=== PATIENT | female | born 1940 | race Caucasian/White ===

== ENCOUNTER 2016-10-13 10:20 | Day surgery (SDC) | payer MEDICARE, BC ==
[~2016-10-13 10:20] MED LIST: Lactated Ringers 1,000 ML IV SCH; Lidocaine 1%/Sod Bicarbonate in NS 8.4% 1 ML Syringe PRN; Midazolam 1 MG/ML 2 ML SDV ONE; Morphine 8 MG, EPINEPHrine 0.3 MG, Ketorolac 30 MG, Sodium Chloride 0.9% 27.9 ML ONE; Morphine PF 10 MG/10 ML SDV ONE; Propofol 200 MG/20 ML SDV ONE; Sodium Chloride 0.9% 10 ML Syringe FLUSH PRN
[2016-10-13] MEDS ORDERED: Bupivacaine 0.25% 30 ML SDV ONE (11:04)
[2016-10-13] MEDS ORDERED: Triamcinolone Acetonide 40 MG/ML 1 ML MDV ONE (11:04)
[2016-10-13] MEDS ORDERED: Vancomycin 1 GM SDV ONE (11:04)
[2016-10-13] MEDS ORDERED: Iodine/Sodium Iodide 2% Tincture 30 ML Bottle ONE (11:04)
--- NOTE | 2016-10-13 11:05 | PCM.PREANE ---
Preanesthetic Assessment - Anesthesia/Transfusion/Family Hx Anesthesia History: Prior Anesthesia Without Reaction Transfusion History: No Prior Transfusion(s) - Physical Assessment Height: 1.52 m Weight: 110.54 kg - Lab Values: Laboratory Last Values MRSA (PCR) Negative 10/01/16 12:14 - Allergies Allergies/Adverse Reactions: Allergies Allergy/AdvReac Type Severity Reaction Status Date / Time Penicillins Allergy Severe Anaphylactic Verified 10/10/16 15:48 Shock estrogens, conjugated Allergy hives/rash Verified 10/10/16 15:48 [From Premarin] PreAnesthesia Questionnaire HEENT History: Reports: Allergic Rhinitis, Cataract, Impaired Vision Other HEENT History: has dentures and glasses Cardiovascular History: Reports: Afib, Heart Failure, High Cholesterol, Hypertension, Pacemaker, Other (See Below) Other Cardiovascular History: new pacemaker battery May 2015 Respiratory History: Reports: Sleep Apnea Other Respiratory History: uses cpap Gastrointestinal History: Reports: GERD Genitourinary History: Reports: Other (See Below) Other Genitourinary History: CKD III 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) Other OB/BYN History: removal of ovarian cyst Musculoskeletal History: Reports: Arthritis, Gout, Osteoarthritis, Other (See Below) Other Musculoskeletal History: restless elg syndrome, muscle weakness Neurological History: Reports: None Psychiatric History: Reports: None Endocrine/Metabolic History: Reports: Diabetes, Type II, Hypothyroidism, Obesity /BMI 30+ Hematologic History: Reports: Anemia Immunologic History: Reports: None Oncologic (Cancer) History: Reports: None - Infectious Disease History Infectious Disease History: Reports: None - Past Surgical History Head Surgeries/Procedures: Reports: None HEENT Surgical History: Reports: Cataract Surgery Cardiovascular Surgical History: Reports: Pacer GI Surgical History: Reports: Appendectomy, Other (See Below) Other GI Surgeries/Procedures: exploratory laparotomy Female Surgical History: Reports: D&C, Hysterectomy Endocrine Surgical History: Reports: None Neurological Surgical History: Reports: Lumbar Spine Other Neurological Surgeries/Procedures: lumbar disc displacement Musculoskeletal Surgical History: Reports: Hip Replacement Other Musculoskeletal Surgeries/Procedures:: arthrocentesis right knee and left knee, rotator cuff repair of shoulder, L total hip replacment Dermatological Surgical History: Reports: None - SUBSTANCE USE Smoking Status *Q: Former Smoker Tobacco Use Within Last Twelve Months: No Recreational Drug Use History: No - HOME MEDS Home Medications: Home Meds Acetaminophen [Tylenol Arthritis Pain] 650 mg PO DAILY PRN 04/13/15 [History] Allopurinol [Zyloprim] 200 mg PO DAILY 04/13/15 [History] Diltiazem HCl [Cardizem Cd] 300 mg PO DAILY 04/13/15 [History] Lisinopril 40 mg PO DAILY 04/13/15 [History] Metoprolol Succinate [Toprol XL] 200 mg PO DAILY 04/13/15 [History] Simvastatin [Zocor] 10 mg PO BEDTIME 04/13/15 [History] Aspirin [Low Dose Aspirin EC] 81 mg PO QPM 04/16/15 [History] Warfarin [Coumadin] 5 mg PO DAILY 04/16/15 [History] Dextrose [Glucose] 4 gm PO ACBREAKFAST PRN #15 tablet 04/25/15 [Rx] Calcium Carbonate [Tums] 500 mg PO DAILY PRN 10/10/16 [History] Cholecalciferol (Vitamin D3) [Vitamin D3] 1,000 unit PO DAILY 10/10/16 [History] Folic Acid 2 mg PO DAILY 10/10/16 [History] Furosemide 40 mg PO BID 10/10/16 [History] Levothyroxine Sodium [Levothyroxine Sodium] 88 mg PO DAILY 10/10/16 [History] Linagliptin [Tradjenta] 5 mg PO BEDTIME 10/10/16 [History] Pramipexole Di-HCl [Mirapex] 0.25 mg PO BEDTIME 10/10/16 [History] glipiZIDE [Glipizide] 5 mg PO BID 10/10/16 [History] - CURRENT (IN HOUSE) MEDS Current Meds: Current Medications Morphine Sulfate 8 mg/Epinephrine HCl 0.3 mg/Cefuroxime Sodium 750 mg/Ketorolac Tromethamine 30 mg/Sodium Chloride 27.9 ml 0 mg .XX ONETIME ONE Stop: 10/13/16 07:10 Lactated Ringer's (Ringers, Lactated) 1,000 mls @ 125 mls/hr IV ASDIRECTED CLAUDIO Stop: 10/13/16 23:00 Clindamycin Phosphate 900 mg/ (Dextrose/Water) 106 mls @ 212 mls/hr IV ONETIME ONE Stop: 10/13/16 13:59 Lidocaine/Sodium Bicarbonate (Buffered Lidocaine 1% In Ns 8.4%) 0.25 ml .XX ONETIME PRN PRN Reason: Prior to IV Start Stop: 10/13/16 18:00 Sodium Chloride (Saline Flush) 10 ml FLUSH ASDIRECTED PRN PRN Reason: Keep Vein Open Stop: 10/13/16 18:00 Discontinued Medications Midazolam HCl (Versed 1 Mg/Ml) Confirm Administered Dose 2 mg .ROUTE .STK-MED ONE Stop: 10/13/16 10:03 Morphine Sulfate (Duramorph Pf) Confirm Administered Dose 10 mg .ROUTE .STK-MED ONE Stop: 10/13/16 10:04 Propofol (Diprivan 20 Ml) Confirm Administered Dose 600 mg .ROUTE .STK-MED ONE Stop: 10/13/16 10:03
[2016-10-13 11:11] VITALS: BP 140/59
--- NOTE | 2016-10-13 11:38 | PCM.PREANE ---
Preanesthetic Assessment - Anesthesia/Transfusion/Family Hx Anesthesia History: Prior Anesthesia Without Reaction Family History of Anesthesia Reaction: No Transfusion History: No Prior Transfusion(s) Type of Transfusion Reactions: Reports: Unknown - Review of Systems General: No Symptoms Pulmonary: Shortness of Breath (JET, wears CPAP) Cardiovascular: Other (pacemaker in place, on coumadin, off 1 week, CHF, lasix daily) Gastrointestinal: Other (occasional heartburn) Neurological: No Symptoms Other: Reports: Diabetes, Thyroid Problems - Physical Assessment NPO Status Date: 10/12/16 NPO Status Time: 19:00 Pulse: 79 O2 Sat by Pulse Oximetry: 95 Respiratory Rate: 17 Blood Pressure: 140/59 Temperature: 37.4 C Vital Signs: Last Vital Signs Temp 37.4 C 10/13/16 10:30 Pulse 79 10/13/16 10:30 Resp 17 10/13/16 10:30 BP 140/59 L 10/13/16 10:30 Pulse Ox 95 10/13/16 10:30 Height: 1.52 m Weight: 110.54 kg ASA Class: 3 Airway Class: Mallampati = 2 Dentition: Reports: Dentures, Edentulous Thyro-Mental Finger Breadths: 3 Mouth Opening Finger Breadths: 3 ROM/Head Extension: Full Lungs: Clear to Auscultation, Normal Respiratory Effort Cardiovascular: Regular Rate, Regular Rhythm - Lab Values: Laboratory Last Values MRSA (PCR) Negative 10/01/16 12:14 - Allergies Allergies/Adverse Reactions: Allergies Allergy/AdvReac Type Severity Reaction Status Date / Time Penicillins Allergy Severe Anaphylactic Verified 10/13/16 11:16 Shock estrogens, conjugated Allergy hives/rash Verified 10/13/16 11:16 [From Premarin] - Blood Blood Available: No Product(s) Available: None - Anesthesia Plan Pre-Op Medication Ordered: None Beta Hortencia: Metoprolol Med Last Dose Date: 10/12/16 Med Last Dose Time: 19:00 - Acknowledgements Anesthesia Type Planned: Spinal Pt an Appropriate Candidate for the Planned Anesthesia: Yes Alternatives and Risks of Anesthesia Discussed w Pt/Guardian: Yes Pt/Guardian Understands and Agrees with Anesthesia Plan: Yes PreAnesthesia Questionnaire HEENT History: Reports: Allergic Rhinitis, Cataract, Impaired Vision Other HEENT History: has dentures and glasses Cardiovascular History: Reports: Afib, Heart Failure, High Cholesterol, Hypertension, Pacemaker, Other (See Below) Other Cardiovascular History: new pacemaker battery May 2015 Respiratory History: Reports: Sleep Apnea Other Respiratory History: uses cpap Gastrointestinal History: Reports: GERD Genitourinary History: Reports: Other (See Below) Other Genitourinary History: CKD 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) Other OB/BYN History: removal of ovarian cyst Musculoskeletal History: Reports: Arthritis, Gout, Osteoarthritis, Other (See Below) Other Musculoskeletal History: restless elg syndrome, muscle weakness Neurological History: Reports: None Psychiatric History: Reports: None Endocrine/Metabolic History: Reports: Diabetes, Type II, Hypothyroidism, Obesity /BMI 30+ Hematologic History: Reports: Anemia Immunologic History: Reports: None Oncologic (Cancer) History: Reports: None - Infectious Disease History Infectious Disease History: Reports: None - Past Surgical History Head Surgeries/Procedures: Reports: None HEENT Surgical History: Reports: Cataract Surgery Cardiovascular Surgical History: Reports: Pacer GI Surgical History: Reports: Appendectomy, Other (See Below) Other GI Surgeries/Procedures: exploratory laparotomy Female Surgical History: Reports: D&C, Hysterectomy Endocrine Surgical History: Reports: None Neurological Surgical History: Reports: Lumbar Spine Other Neurological Surgeries/Procedures: lumbar disc displacement Musculoskeletal Surgical History: Reports: Hip Replacement Other Musculoskeletal Surgeries/Procedures:: arthrocentesis right knee and left knee, rotator cuff repair of shoulder, L total hip replacment Dermatological Surgical History: Reports: None - SUBSTANCE USE Smoking Status *Q: Former Smoker Tobacco Use Within Last Twelve Months: No Recreational Drug Use History: No - HOME MEDS Home Medications: Home Meds Acetaminophen [Tylenol Arthritis Pain] 650 mg PO DAILY PRN 04/13/15 [History] Allopurinol [Zyloprim] 200 mg PO DAILY 04/13/15 [History] Diltiazem HCl [Cardizem Cd] 300 mg PO DAILY 04/13/15 [History] Lisinopril 40 mg PO DAILY 04/13/15 [History] Metoprolol Succinate [Toprol XL] 200 mg PO DAILY 04/13/15 [History] Simvastatin [Zocor] 10 mg PO BEDTIME 04/13/15 [History] Aspirin [Low Dose Aspirin EC] 81 mg PO QPM 04/16/15 [History] Warfarin [Coumadin] 5 mg PO DAILY 04/16/15 [History] Dextrose [Glucose] 4 gm PO ACBREAKFAST PRN #15 tablet 04/25/15 [Rx] Calcium Carbonate [Tums] 500 mg PO DAILY PRN 10/10/16 [History] Cholecalciferol (Vitamin D3) [Vitamin D3] 1,000 unit PO DAILY 10/10/16 [History] Folic Acid 2 mg PO DAILY 10/10/16 [History] Furosemide 40 mg PO BID 10/10/16 [History] Levothyroxine Sodium [Levothyroxine Sodium] 88 mg PO DAILY 10/10/16 [History] Linagliptin [Tradjenta] 5 mg PO BEDTIME 10/10/16 [History] Pramipexole Di-HCl [Mirapex] 0.25 mg PO BEDTIME 10/10/16 [History] glipiZIDE [Glipizide] 5 mg PO BID 10/10/16 [History] - CURRENT (IN HOUSE) MEDS Current Meds: Current Medications Lactated Ringer's (Ringers, Lactated) 1,000 mls @ 125 mls/hr IV ASDIRECTED CLAUDIO Stop: 10/13/16 23:00 Last Admin: 10/13/16 10:59 Dose: 125 mls/hr Clindamycin Phosphate 900 mg/ (Dextrose/Water) 106 mls @ 212 mls/hr IV ONETIME ONE Stop: 10/13/16 12:14 Last Admin: 10/13/16 10:59 Dose: 212 mls/hr Lidocaine/Sodium Bicarbonate (Buffered Lidocaine 1% In Ns 8.4%) 0.25 ml .XX ONETIME PRN PRN Reason: Prior to IV Start Stop: 10/13/16 18:00 Last Admin: 10/13/16 10:59 Dose: 0.25 ml Sodium Chloride (Saline Flush) 10 ml FLUSH ASDIRECTED PRN PRN Reason: Keep Vein Open Stop: 10/13/16 18:00 Discontinued Medications Bupivacaine HCl (Marcaine 0.25%) Confirm Administered Dose 60 ml .ROUTE .STK- MED ONE Stop: 10/13/16 11:05 Morphine Sulfate 8 mg/Epinephrine HCl 0.3 mg/Ketorolac Tromethamine 30 mg/ Sodium Chloride 27.9 ml 0 mg .XX ONETIME ONE Stop: 10/13/16 07:10 Iodine (Iodine 2% Mild Tincture) Confirm Administered Dose 30 ml .ROUTE .STK- MED ONE Stop: 10/13/16 11:05 Midazolam HCl (Versed 1 Mg/Ml) Confirm Administered Dose 2 mg .ROUTE .STK-MED ONE Stop: 10/13/16 10:03 Morphine Sulfate (Duramorph Pf) Confirm Administered Dose 10 mg .ROUTE .STK-MED ONE Stop: 10/13/16 10:04 Propofol (Diprivan 20 Ml) Confirm Administered Dose 600 mg .ROUTE .STK-MED ONE Stop: 10/13/16 10:03 Tranexamic Acid (Cyklokapron) Confirm Administered Dose 1,000 mg .ROUTE .STK- MED ONE Stop: 10/13/16 11:05 Triamcinolone Acetonide (Kenalog-40) Confirm Administered Dose 80 mg .ROUTE .STK -MED ONE Stop: 10/13/16 11:05 Vancomycin HCl (Vancomycin) Confirm Administered Dose 1 gm .ROUTE .STK-MED ONE Stop: 10/13/16 11:05
[2016-10-13] MEDS ORDERED: Clindamycin Phosphate 900 MG in Dextrose 5% in Water 100 ML IV ONE ×2 (11:45)
[2016-10-13] MEDS ORDERED: Ondansetron 4 MG/2 ML SDV IVPUSH PRN (12:18)
[2016-10-13] MEDS ORDERED: Acetaminophen/oxyCODONE 325-5 MG Tab PO PRN (12:18)
[2016-10-13] MEDS ORDERED: Glucose Gel 15 GM in 37.5 GM Tube PO PRN (12:33)
[2016-10-13] MEDS ORDERED: Calcium Carbonate 500 MG Tab.Chew PO PRN (12:33)
[2016-10-13] MEDS ORDERED: Bisacodyl 5 MG Tab PO PRN (14:00)
[2016-10-13] MEDS ORDERED: Magnesium Hydroxide 400 MG/5 ML Susp 30 ML Cup PO PRN (14:00)
[2016-10-13] MEDS ORDERED: Sennosides 8.6 MG Tab PO PRN (14:00)
[2016-10-13] MEDS ORDERED: Naloxone 0.4 MG/ML SDV IVPUSH PRN (14:00)
[2016-10-13] MEDS ORDERED: Morphine 2 MG/ML Syringe IVPUSH PRN (14:00)
[2016-10-13] MEDS ORDERED: Cyclobenzaprine 10 MG Tab PO PRN (14:00)
[2016-10-13] MEDS ORDERED: Clindamycin Phosphate 900 MG in Sodium Chloride 0.9% 100 ML IV SCH (17:45)
[2016-10-13] MEDS ORDERED: Aspirin 81 MG Tab.EC PO SCH (18:00)
[2016-10-13] MEDS ORDERED: Simvastatin 10 MG Tab PO SCH (21:00)
[2016-10-13] MEDS ORDERED: glipiZIDE 5 MG Tab PO SCH (21:00)
[2016-10-13] MEDS ORDERED: Famotidine 20 MG Tab PO SCH (21:00)
[2016-10-13] MEDS ORDERED: Furosemide 20 MG Tab PO SCH (21:00)
[2016-10-13] MEDS ORDERED: Pramipexole 0.25 MG Tab PO SCH (21:00)
[2016-10-13] MEDS ORDERED: Docusate Sodium 100 MG Cap PO SCH (21:00)
[2016-10-14] MEDS ORDERED: Multivitamins,Therapeutic Tab PO SCH (07:00)
[2016-10-14] MEDS ORDERED: Cholecalciferol (Vitamin D3) 1,000 Unit Tab PO SCH (09:00)
[2016-10-14] MEDS ORDERED: Diltiazem 300 MG Cap.CD PO SCH (09:00)
[2016-10-14] MEDS ORDERED: Allopurinol 100 MG Tab PO SCH (09:00)
[2016-10-14] MEDS ORDERED: Metoprolol Succinate 50 MG Tab.ER PO SCH (09:00)
[2016-10-14] MEDS ORDERED: Folic Acid 1 MG Tab PO SCH (09:00)
[2016-10-14] MEDS ORDERED: Levothyroxine 88 MCG Tab PO SCH (09:00)
[2016-10-14] MEDS ORDERED: Lisinopril 20 MG Tab PO SCH (09:00)
--- NOTE | 2016-10-18 17:16 | PCM.SN ---
- Free Text/Narrative Note: Consult was not performed, this surgical case was cancelled.
== END 2016-10-13 13:01 | disposition home or self-care (01) ==
LOC: JD.SDS 10:20 → UNDOADMIN 10:20 → JD.MS 10:20 → UNDODISIN 13:01 → JD.SDS 13:01 → EDSTATUS 16:00
PROVIDERS: ATTEND Orthopaedic Surgery
DX: M17.11 Unilateral primary osteoarthritis, right knee (principal); Z53.8 Procedure and treatment not carried out for other reasons; R06.02 Shortness of breath; Z79.01 Long term (current) use of anticoagulants
CPT/HCPCS: 36415; 80048; 85025; 85610; 85730; 87641; J3301; J7060; J7120; A9270-GY; J2250; J2270; J2704; J3370; J3490

== ENCOUNTER 2016-11-17 08:22 | Inpatient (IN) | payer MEDICARE, BC ==
[~2016-11-17 08:22] MED LIST changes: -Midazolam 1 MG/ML 2 ML SDV ONE; -Morphine 8 MG, EPINEPHrine 0.3 MG, Ketorolac 30 MG, Sodium Chloride 0.9% 27.9 ML ONE; -Morphine PF 10 MG/10 ML SDV ONE; -Propofol 200 MG/20 ML SDV ONE
[2016-11-17] MEDS ORDERED: fentaNYL 100 MCG/2 ML SDV ONE (08:26)
[2016-11-17] MEDS ORDERED: Propofol 200 MG/20 ML SDV ONE ×2 (08:26→12:02)
[2016-11-17] MEDS ORDERED: ceFAZolin 1 GM Vial ONE (08:26)
[2016-11-17] MEDS ORDERED: Lidocaine 1% 4 ML ONE (08:26)
[2016-11-17] MEDS ORDERED: Bisacodyl 5 MG Tab PO PRN (09:04)
[2016-11-17] MEDS ORDERED: Morphine 2 MG/ML Syringe IVPUSH PRN (09:04)
[2016-11-17] MEDS ORDERED: Ondansetron 4 MG/2 ML SDV IVPUSH PRN ×2 (09:04→12:00)
[2016-11-17] MEDS ORDERED: Sennosides 8.6 MG Tab PO PRN (09:04)
[2016-11-17] MEDS ORDERED: Magnesium Hydroxide 400 MG/5 ML Susp 30 ML Cup PO PRN (09:04)
[2016-11-17] MEDS ORDERED: Naloxone 0.4 MG/ML SDV IVPUSH PRN (09:04)
[2016-11-17] MEDS ORDERED: Midazolam 1 MG/ML 2 ML SDV ONE (10:02)
[2016-11-17] MEDS ORDERED: Phenylephrine 1% 10 MG/ML SDV ONE (10:06)
[2016-11-17] MEDS ORDERED: ePHEDrine 50 MG/ML SDV ONE (10:06)
[2016-11-17] MEDS ORDERED: Morphine PF 10 MG/10 ML SDV ONE (10:57)
[2016-11-17] MEDS ORDERED: Clindamycin Phosphate 900 MG/6 ML AdvVial ONE (11:07)
[2016-11-17] MEDS: Clindamycin Phosphate 900 MG/6 ML AdvVial ONE ×2 (11:33→12:07)
[2016-11-17] MEDS: Iodine/Sodium Iodide 2% Tincture 30 ML Bottle ONE ×2 (11:33→12:03)
[2016-11-17] MEDS: Vancomycin 1 GM SDV ONE ×2 (11:34→12:17)
[2016-11-17] MEDS: Bupivacaine 0.25% 30 ML SDV ONE ×2 (11:34→12:14)
[2016-11-17] MEDS: Morphine 8 MG, EPINEPHrine 0.3 MG, Ketorolac 30 MG, Sodium Chloride 0.9% 27.9 ML ONE ×12 (11:34→20:23)
[2016-11-17] MEDS: Bupivacaine 0.25% 10 ML SDV INJECT ONE ×3 (11:35→20:24)
[2016-11-17] MEDS: Triamcinolone Acetonide 40 MG/ML 1 ML MDV ONE ×2 (11:36→12:48)
--- NOTE | 2016-11-17 11:37 | PCM.PREANE ---
Preanesthetic Assessment - Anesthesia/Transfusion/Family Hx Anesthesia History: Prior Anesthesia Without Reaction Family History of Anesthesia Reaction: No Transfusion History: No Prior Transfusion(s) Type of Transfusion Reactions: Reports: Unknown Intubation History: History of Difficulty Intubation (Previous note: Grade IV view, Thomas II, bouge used to secure airway. ) - Review of Systems General: No Symptoms Pulmonary: No Symptoms Cardiovascular: No Symptoms Gastrointestinal: No Symptoms Neurological: No Symptoms Other: Reports: Diabetes - Physical Assessment NPO Status Date: 11/16/16 NPO Status Time: 19:30 O2 Sat by Pulse Oximetry: 99 Respiratory Rate: 16 Vital Signs: Last Vital Signs Temp 36.6 C 11/17/16 09:00 Pulse 71 11/17/16 09:00 Resp 16 11/17/16 09:00 BP 138/63 11/17/16 09:00 Pulse Ox 99 11/17/16 09:00 Height: 1.55 m Weight: 112.491 kg ASA Class: 3 Mental Status: Alert & Oriented x3 Airway Class: Mallampati = 2 Dentition: Reports: Dentures (Upper and lower dentures, two teeth secure in mouth. ) Thyro-Mental Finger Breadths: 3 Mouth Opening Finger Breadths: 3 ROM/Head Extension: Full Lungs: Clear to Auscultation, Normal Respiratory Effort Cardiovascular: Regular Rate, Regular Rhythm (Atrial Paced) - Lab Values: Laboratory Last Values PT 11.2 SECONDS (8.0-13.0) 11/17/16 09:40 INR 1.03 11/17/16 09:40 APTT 26 SECONDS (22-36) 11/17/16 09:40 POC Glucose 166 mg/dL (83-110) H 11/17/16 09:20 MRSA (PCR) Negative 11/07/16 11:47 - Allergies Allergies/Adverse Reactions: Allergies Allergy/AdvReac Type Severity Reaction Status Date / Time Penicillins Allergy Severe Anaphylactic Verified 10/13/16 11:16 Shock estrogens, conjugated Allergy hives/rash Verified 10/13/16 11:16 [From Premarin] - Anesthesia Plan Pre-Op Medication Ordered: Anxiolytic Beta Hortencia: Metoprolol Med Last Dose Date: 11/17/16 Med Last Dose Time: 06:30 - Acknowledgements Anesthesia Type Planned: Spinal Pt an Appropriate Candidate for the Planned Anesthesia: Yes Alternatives and Risks of Anesthesia Discussed w Pt/Guardian: Yes Pt/Guardian Understands and Agrees with Anesthesia Plan: Yes Additional Comments: Laboratory values within normal limits: INR 1.03, PT 11.2, PTT 26, Plt 188 PreAnesthesia Questionnaire HEENT History: Reports: Impaired Vision Other HEENT History: has dentures and glasses Cardiovascular History: Reports: Afib, High Cholesterol, Hypertension, Pacemaker Other Cardiovascular History: new pacemaker battery May 2015 Respiratory History: Reports: Sleep Apnea Other Respiratory History: uses cpap at hs Gastrointestinal History: Reports: GERD Genitourinary History: Reports: Other (See Below) Other 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) Other OB/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: removal of ovarian cyst Musculoskeletal History: Reports: Gout, Osteoarthritis Other Musculoskeletal History: restless elg syndrome, muscle weakness Neurological History: Reports: None Psychiatric History: Reports: None Endocrine/Metabolic History: Reports: Diabetes, Type II, Hypothyroidism, Obesity /BMI 30+ Hematologic History: Reports: Anemia Immunologic History: Reports: None Oncologic (Cancer) History: Reports: None Dermatologic History: Reports: None - Infectious Disease History Infectious Disease History: Reports: None - Past Surgical History Head Surgeries/Procedures: Reports: None HEENT Surgical History: Reports: Cataract Surgery Cardiovascular Surgical History: Reports: Pacer Respiratory Surgical History: Reports: None GI Surgical History: Reports: Other (See Below) Other GI Surgeries/Procedures: exploratory laparotomy Female Surgical History: Reports: D&C, Hysterectomy Endocrine Surgical History: Reports: None Neurological Surgical History: Reports: Lumbar Spine Other Neurological Surgeries/Procedures: lumbar disc displacement Musculoskeletal Surgical History: Reports: Hip Replacement Other Musculoskeletal Surgeries/Procedures:: arthrocentesis right knee and left knee, rotator cuff repair of shoulder Oncologic Surgical History: Reports: None Dermatological Surgical History: Reports: None - SUBSTANCE USE Smoking Status *Q: Never Smoker Tobacco Use Within Last Twelve Months: No Recreational Drug Use History: No - HOME MEDS Home Medications: Home Meds Acetaminophen [Tylenol Arthritis Pain] 650 mg PO DAILY PRN 04/13/15 [History] Allopurinol [Zyloprim] 200 mg PO DAILY 04/13/15 [History] Diltiazem HCl [Cardizem Cd] 300 mg PO DAILY 04/13/15 [History] Lisinopril 40 mg PO DAILY 04/13/15 [History] Metoprolol Succinate [Toprol XL] 200 mg PO DAILY 04/13/15 [History] Simvastatin [Zocor] 10 mg PO BEDTIME 04/13/15 [History] Aspirin [Low Dose Aspirin EC] 81 mg PO QPM 04/16/15 [History] Warfarin [Coumadin] 5 mg PO DAILY 04/16/15 [History] Calcium Carbonate [Tums] 500 mg PO DAILY PRN 10/10/16 [History] Folic Acid 400 mcg PO DAILY 10/10/16 [History] Furosemide 40 mg PO BID 10/10/16 [History] Levothyroxine Sodium [Levothyroxine Sodium] 88 mg PO DAILY 10/10/16 [History] Linagliptin [Tradjenta] 5 mg PO BEDTIME 10/10/16 [History] Pramipexole Di-HCl [Mirapex] 0.25 mg PO BEDTIME 10/10/16 [History] glipiZIDE [Glipizide] 5 mg PO BID 10/10/16 [History] Cholecalciferol (Vitamin D3) [Vitamin D3] 5,000 unit PO DAILY 11/14/16 [History] - CURRENT (IN HOUSE) MEDS Current Meds: Current Medications Bisacodyl (Dulcolax) 5 mg PO DAILY PRN PRN Reason: Constipation Docusate Sodium (Colace) 100 mg PO BID [facility] Enoxaparin Sodium (Lovenox) 40 mg SUBCUT DAILY [facility] Famotidine (Pepcid) 20 mg PO Q12H [facility] Lactated Ringer's (Ringers, Lactated) 1,000 mls @ 125 mls/hr IV ASDIRECTED [facility] Stop: 11/17/16 23:00 Clindamycin Phosphate 900 mg/ (Sodium Chloride) 106 mls @ 100 mls/hr IV Q6H [facility] Stop: 11/18/16 09:16 Lidocaine/Sodium Bicarbonate (Buffered Lidocaine 1% In Ns 8.4%) 0.25 ml .XX ONETIME PRN PRN Reason: Prior to IV Start Stop: 11/17/16 18:00 Magnesium Hydroxide (Milk Of Magnesia) 30 ml PO BID PRN PRN Reason: Constipation Morphine Sulfate (Morphine) 2 mg IVPUSH Q2H PRN PRN Reason: Breakthrough Pain Multivitamins (Thera) 1 each PO WITHBREAKFAST [facility] Naloxone HCl (Narcan) 0.1 mg IVPUSH Q5M PRN PRN Reason: Oversedation Ondansetron HCl (Zofran) 4 mg IVPUSH Q6H PRN PRN Reason: Nausea/Vomiting Oxycodone/Acetaminophen (Percocet 325-5 Mg) 1 - 2 tab PO Q4H PRN PRN Reason: Pain Senna (Senna) 8.6 mg PO BID PRN PRN Reason: Constipation Sodium Chloride (Saline Flush) 10 ml FLUSH ASDIRECTED PRN PRN Reason: Keep Vein Open Stop: 11/17/16 18:00 Warfarin Sodium (Pharmacy To Dose - Warfarin) 0 dose .XX ASDIRECTED PRN PRN Reason: RX TO DOSE COUMADIN Warfarin Sodium (Coumadin) 5 mg PO DAILY@1800 [facility] Stop: 11/17/16 21:00 Discontinued Medications Bupivacaine HCl (Marcaine 0.25%) Confirm Administered Dose 30 ml .ROUTE .STK- MED ONE Stop: 11/17/16 09:35 Bupivacaine HCl (Sensorcaine-Mpf 0.25%) 4 ml INJECT ONETIME ONE Stop: 11/17/16 10:31 Cefazolin Sodium (Ancef) Confirm Administered Dose 2 gm .ROUTE .STK-MED ONE Stop: 11/17/16 08:27 Clindamycin Phosphate (Cleocin) Confirm Administered Dose 900 mg .ROUTE .STK- MED ONE Stop: 11/17/16 09:42 Clindamycin Phosphate (Cleocin) Confirm Administered Dose 900 mg .ROUTE .STK- MED ONE Stop: 11/17/16 11:08 Morphine Sulfate 8 mg/Epinephrine HCl 0.3 mg/Ketorolac Tromethamine 30 mg/ Sodium Chloride 27.9 ml 0 mg .XX ONETIME ONE Stop: 11/17/16 09:01 Ephedrine Sulfate (Ephedrine Sulfate) Confirm Administered Dose 50 mg .ROUTE .STK-MED ONE Stop: 11/17/16 10:07 Fentanyl (Sublimaze) Confirm Administered Dose 100 mcg .ROUTE .STK-MED ONE Stop: 11/17/16 08:27 Lidocaine HCl (Xylocaine-Mpf 1%) Confirm Administered Dose 4 mls @ as directed .ROUTE .STK-MED ONE Stop: 11/17/16 08:27 Iodine (Iodine 2% Mild Tincture) Confirm Administered Dose 30 ml .ROUTE .STK- MED ONE Stop: 11/17/16 09:34 Midazolam HCl (Versed 1 Mg/Ml) Confirm Administered Dose 2 mg .ROUTE .STK-MED ONE Stop: 11/17/16 10:03 Morphine Sulfate (Duramorph Pf) Confirm Administered Dose 10 mg .ROUTE .STK-MED ONE Stop: 11/17/16 10:58 Phenylephrine HCl (Keyur-Synephrine) Confirm Administered Dose 10 mg .ROUTE .STK- MED ONE Stop: 11/17/16 10:07 Propofol (Diprivan 20 Ml) Confirm Administered Dose 200 mg .ROUTE .STK-MED ONE Stop: 11/17/16 08:27 Tranexamic Acid (Cyklokapron) Confirm Administered Dose 1,000 mg .ROUTE .STK- MED ONE Stop: 11/17/16 09:34 Triamcinolone Acetonide (Kenalog-40) Confirm Administered Dose 80 mg .ROUTE .STK -MED ONE Stop: 11/17/16 09:34 Vancomycin HCl (Vancomycin) Confirm Administered Dose 1 gm .ROUTE .STK-MED ONE Stop: 11/17/16 09:34
[2016-11-17] MEDS ORDERED: diphenhydrAMINE 50 MG/ML SDV IVPUSH PRN (12:00)
[2016-11-17] MEDS ORDERED: Ketamine 500 mg/10 ML MDV ONE (12:01)
[2016-11-17] MEDS ORDERED: Lactated Ringers 1,000 ML ONE (12:22)
--- NOTE | 2016-11-17 13:04 | PCM.POSTAN ---
POST ANESTHESIA ASSESSMENT - MENTAL STATUS Mental Status: Alert, Oriented - VITAL SIGNS Pulse Rate: 71 SaO2: 94 Resp Rate: 18 Blood Pressure: 110/57 Temperature: 98.9 C - RESPIRATORY Respiratory Status: Respiratory Rate WNL, Airway Patent, O2 Saturation Stable, Supplemental Oxygen - CARDIOVASCULAR CV Status: Pulse Rate WNL, Blood Pressure Stable - GASTROINTESTINAL GI Status: No Symptoms - PAIN Pain Score: 0 - POST OP HYDRATION Hydration Status: Adequate & Stable
--- NOTE | 2016-11-17 13:30 | CR ---
Right knee: AP and lateral views of the right knee were obtained. Comparison: No previous knee exam. Knee prosthesis is seen. Components are aligned. Underlying bony structures are intact. Impression: 1. Satisfactory radiographic appearance of recently placed right knee prosthesis. Diagnostic code #2
--- NOTE | 2016-11-17 15:13 | PCM.CONS ---
H&P History of Present Illness - General Date of Service: 11/17/16 Admit Problem/Dx: Admission Diagnosis/Problem Admission Diagnosis/Problem Osteoarthritis of knee Source of Information: Patient, Old Records, Provider, RN Notes Reviewed History Limitations: Reports: Physical Impairment - History of Present Illness Initial Comments - Free Text/Narative: This is a 76-year-old, white female, with past medical history of Chronic Atrial Fibrillation, HTN, CKD Stage3, DM2, Hypothyroidism, AR, Anemia, RLS, S/p Pacemaker placement, Hx/o Arrhythmia, Obesity with BMI of 46.9, JET on CPAP and OA/DJD who underwent right total knee arthroplasty and left knee cortisone injection post operative day zero. Patient is doing relatively well but hypotensive. Currently, her pain is controlled. She denies any acute issues. Hospital Medicine was consulted for postoperative care. Right Knee Pain Score (Numeric/FACES): 4 - Related Data Allergies/Adverse Reactions: Allergies Allergy/AdvReac Type Severity Reaction Status Date / Time Penicillins Allergy Severe Anaphylactic Verified 11/17/16 16:31 Shock estrogens, conjugated Allergy hives/rash Verified 11/17/16 16:31 [From Premarin] Home Medications: Home Meds Acetaminophen [Tylenol Arthritis Pain] 650 mg PO DAILY PRN 04/13/15 [History] Allopurinol [Zyloprim] 200 mg PO DAILY 04/13/15 [History] Diltiazem HCl [Cardizem Cd] 300 mg PO DAILY 04/13/15 [History] Lisinopril 40 mg PO DAILY 04/13/15 [History] Metoprolol Succinate [Toprol XL] 200 mg PO DAILY 04/13/15 [History] Simvastatin [Zocor] 10 mg PO BEDTIME 04/13/15 [History] Aspirin [Low Dose Aspirin EC] 81 mg PO QPM 04/16/15 [History] Warfarin [Coumadin] 5 mg PO DAILY 04/16/15 [History] Calcium Carbonate [Tums] 500 mg PO DAILY PRN 10/10/16 [History] Folic Acid 400 mcg PO DAILY 10/10/16 [History] Furosemide 40 mg PO BID 10/10/16 [History] Levothyroxine Sodium [Levothyroxine Sodium] 88 mg PO DAILY 10/10/16 [History] Linagliptin [Tradjenta] 5 mg PO BEDTIME 10/10/16 [History] Pramipexole Di-HCl [Mirapex] 0.25 mg PO BEDTIME 10/10/16 [History] glipiZIDE [Glipizide] 5 mg PO BID 10/10/16 [History] Cholecalciferol (Vitamin D3) [Vitamin D3] 5,000 unit PO DAILY 11/14/16 [History] Furosemide 20 mg PO WITHLUNCH 11/17/16 [History] Past Medical History HEENT History: Reports: Impaired Vision Other HEENT History: has dentures and glasses Cardiovascular History: Reports: Afib, High Cholesterol, Hypertension, Pacemaker Other Cardiovascular History: new pacemaker battery May 2015 Respiratory History: Reports: Sleep Apnea Other Respiratory History: uses cpap at hs Gastrointestinal History: Reports: GERD Genitourinary History: Reports: Other (See Below) Other Genitourinary History: CKD 3 [employer] History: Reports: Other (See Below) Other OB/BYN History: removal of ovarian cyst Musculoskeletal History: Reports: Gout, Osteoarthritis Other Musculoskeletal History: restless elg syndrome, muscle weakness Neurological History: Reports: None Psychiatric History: Reports: None Endocrine/Metabolic History: Reports: Diabetes, Type II, Hypothyroidism, Obesity /BMI 30+ Hematologic History: Reports: Anemia Immunologic History: Reports: None Oncologic (Cancer) History: Reports: None Dermatologic History: Reports: None - Infectious Disease History Infectious Disease History: Reports: None - Past Surgical History Head Surgeries/Procedures: Reports: None HEENT Surgical History: Reports: Cataract Surgery Cardiovascular Surgical History: Reports: Pacer Respiratory Surgical History: Reports: None GI Surgical History: Reports: Other (See Below) Other GI Surgeries/Procedures: exploratory laparotomy Female Surgical History: Reports: D&C, Hysterectomy Endocrine Surgical History: Reports: None Neurological Surgical History: Reports: Lumbar Spine Other Neurological Surgeries/Procedures: lumbar disc displacement Musculoskeletal Surgical History: Reports: Hip Replacement Other Musculoskeletal Surgeries/Procedures:: arthrocentesis right knee and left knee, rotator cuff repair of shoulder Oncologic Surgical History: Reports: None Dermatological Surgical History: Reports: None Social & Family History - Tobacco Use Smoking Status *Q: Never Smoker Used Tobacco, but Quit: Yes Month Tobacco Last Used: 1970 - Caffeine Use Caffeine Use: Reports: None - Recreational Drug Use Recreational Drug Use: No H&P Review of Systems - Review of Systems: Review Of Systems: See Below General: Denies: Fever, Chills, Malaise, Weakness, Fatigue HEENT: Reports: No Symptoms Pulmonary: Denies: Shortness of Breath, Wheezing, Cough Cardiovascular: Denies: Chest Pain, Palpitations, Dyspnea on Exertion, Lightheadedness Gastrointestinal: Denies: Abdominal Pain, Nausea, Vomiting Genitourinary: Reports: No Symptoms Musculoskeletal: Reports: No Symptoms, Neck Pain Skin: Denies: Cyanosis, Pallor, Diaphoresis Psychiatric: Denies: Confusion, Depression, Anxiety, Hallucinations, Suicidal Ideation, Homicidal Ideation, Hallucinations (Auditory) Neurological: Reports: Difficulty Walking, Gait Disturbance. Denies: Confusion , Weakness Hematologic/Lymphatic: Reports: Anemia, Easy Bruising Immunologic: Reports: No Symptoms Exam - Exam Exam: See Below - Vital Signs Vital Signs: Last Vital Signs Temp 36.7 C 11/17/16 14:00 Pulse 71 11/17/16 13:04 Resp 14 11/17/16 14:00 BP 115/59 L 11/17/16 14:00 Pulse Ox 96 11/17/16 14:00 Weight: 112.491 kg - Exam General: Alert, Oriented, Cooperative, Other (Morbidly Obese). No: Mild Distress HEENT: Conjunctiva Clear, EACs Clear, EOMI, Hearing Intact, Nares Patent, Normal Nasal Septum, Posterior Pharynx Clear, Pupils Equal, Pupils Reactive Neck: Supple, Trachea Midline, Full Range of Motion. No: JVD Lungs: Normal Respiratory Effort, Decreased Breath Sounds Cardiovascular: Irregular Rhythm GI/Abdominal Exam: Normal Bowel Sounds, Soft, Non-Tender, No Organomegaly, No Distention, No Abnormal Bruit, No Mass (Female) Exam: Other (indwelling gibbs catheter) Rectal (Female) Exam: Deferred Back Exam: Normal Inspection, Decreased Range of Motion Extremities: Normal Inspection, Normal Range of Motion, Non-Tender, No Pedal Edema, Normal Capillary Refill Peripheral Pulses: 1+: Posterior Tibial (L), Posterior Tibial (R), 2+: Dorsalis Pedis (L), Dorsalis Pedis (R) Skin: Warm, Dry, Intact Neuro Extensive - Mental Status: Oriented x3, Normal Cognition, Memory Intact Neuro Extensive - Motor, Sensory, Reflexes: CN II-XII Intact (limited but grossly intact), Abnormal Gait Psychiatric: Alert, Normal Affect, Normal Mood - Patient Data Lab Results Last 24 hrs: Laboratory Results - last 24 hr 11/17/16 11/17/16 Range/Units 09:20 09:40 PT 11.2 (8.0-13.0) SECONDS INR 1.03 APTT 26 (22-36) SECONDS POC Glucose 166 H (83-110) mg/dL Consult PN Assessment/Plan POD#: 0 Procedures: Procedures ASSAY OF BLOOD/URIC ACID (08/11/16) ASSAY OF FERRITIN (09/29/16) ASSAY OF HAPTOGLOBIN QUANT (10/14/16) ASSAY OF IRON (10/14/16) ASSAY OF NATRIURETIC PEPTIDE (04/23/15) ASSAY OF PARATHORMONE (08/08/15) ASSAY OF PREALBUMIN (11/03/16) ASSAY OF PROTEIN URINE (08/08/15) ASSAY OF TRANSFERRIN (08/08/15) ASSAY OF TROPONIN QUANT (04/23/15) ASSAY OF URINE CREATININE (08/08/15) ASSAY THYROID STIM HORMONE (09/26/16) BLOOD TYPING SEROLOGIC ABO (04/16/15) BLOOD TYPING SEROLOGIC RH(D) (04/16/15) CHEST X-RAY 2VW FRONTAL&LATL (09/29/16) COMP SCREEN MAMMOGRAM ADD-ON (07/03/15) COMPLETE CBC AUTOMATED (09/26/16) COMPLETE CBC W/AUTO DIFF WBC (11/03/16) COMPREHEN METABOLIC PANEL (11/03/16) COMPUTER DX MAMMOGRAM ADD-ON (12/04/15) DESTRUCT B9 LESION 1-14 (04/07/16) DRAIN/INJ JOINT/BURSA W/O US (10/31/14) DXA BONE DENSITY AXIAL (11/04/16) ELECTROCARDIOGRAM TRACING (04/23/15) EMERGENCY DEPT VISIT (04/23/15) EXTREMITY STUDY (04/16/15) GAIT TRAINING THERAPY (04/23/15) GLUCOSE BLOOD TEST (04/23/15) GLYCOSYLATED HEMOGLOBIN TEST (09/26/16) HYDRATE IV INFUSION ADD-ON (04/23/15) HYDRATION IV INFUSION INIT (04/23/15) LACTATE (LD) (LDH) ENZYME (10/14/16) LIPID PANEL (09/26/16) MEASURE BLOOD OXYGEN LEVEL (04/16/15) MED NUTRITION INDIV SUBSEQ (01/15/15) MEDICAL NUTRITION INDIV IN (01/04/15) METABOLIC PANEL TOTAL CA (10/13/16) MR-STAPH DNA AMP PROBE (10/13/16) NEEDLE LOCALIZATION BY XRAY (10/31/14) OFFICE/OUTPATIENT VISIT EST (10/14/16) OT EVALUATION (04/23/15) PROTHROMBIN TIME (11/03/16) PT EVALUATION (04/23/15) RBC ANTIBODY SCREEN (04/16/15) RENAL FUNCTION PANEL (08/11/16) ROUTINE VENIPUNCTURE (11/03/16) SELF CARE MNGMENT TRAINING (04/23/15) THERAPEUTIC ACTIVITIES (04/16/15) THERAPEUTIC EXERCISES (04/23/15) THROMBOPLASTIN TIME PARTIAL (11/03/16) TISSUE EXAM BY PATHOLOGIST (04/07/14) ULTRASOUND BREAST COMPLETE (07/12/15) URINALYSIS AUTO W/SCOPE (08/11/16) VITAMIN B-12 (10/14/16) VITAMIN D 25 HYDROXY (09/29/16) X-RAY EXAM HIP UNI 1 VIEW (04/16/15) X-RAY EXAM L-S SPINE 2/3 VWS (11/12/16) Problem List Initiated/Reviewed/Updated: Yes Plan: Assessment: Acute: Post-Operative Care State - Hypotensive with documented BPs of 75/59 and 67/50 mmHg - Continue to monitor for hemodynamic instability S/p Right Total knee Arthroplasty and Left Knee Steroid Injection - Stable - DVT and Pain Management as per primary team Hx/o Chronic Bilateral Knee Pain 2/2 OA/DJD - Pain Management as per primary team Post Operative Hypotension - BPs: documented BPs of 75/59 and 67/50 mmHg - 250 ml NS x1 now - Monitor BPs Subtherapeutic INR - INR 1.03 - Resume home dose warfarin - Lovenox SubQ to bridge - Daily INR and pharmacy to monitor Chronic: Atrial Fibrillation, HR controlled on Warfarin HTN CKD Stage3 DM2 Hypothyroidism Allergic Rhinitis Anemia RLS JET on CPAP S/p Pacemaker Placement Hx/o Arrhythmia Obesity with BMI of 46.9 OA/DJD Plan: She looks clinically stable Routine AM labs NS 250 ml bolus 1 Accu-check AM/HS ISS low dose Continue home meds CPAP QHS PT/OT consult IS q2 awake Thank you for the opportunity to participate in the management of this patient Requesting Provider: Dr. Mukherjee Date Consult Requested: 11/17/16 Patient History Reviewed: Yes Admission H&P Reviewed: Yes Consult Result/Summary: Clinically Stable but Hypotensive. She has Subtherapeutic INR. Notified Requestor: Yes
[2016-11-17] MEDS: Clindamycin Phosphate 600 MG in Sodium Chloride 0.9% 100 ML IV SCH ×2 (17:05→22:54)
[2016-11-17] MEDS ORDERED: Warfarin 5 MG Tab PO SCH (18:00)
[2016-11-17] MEDS ORDERED: ACETAMINOPHEN PO PRN (19:18)
[2016-11-17] MEDS ORDERED: Calcium Carbonate 500 MG Tab.Chew PO PRN (19:18)
[2016-11-17] MEDS ORDERED: hydrALAZINE 20 MG/ML SDV IVPUSH PRN (19:21)
[2016-11-17] MEDS ORDERED: Metoprolol Tartrate 5 MG/5 ML SDV IVPUSH PRN (19:21)
[2016-11-17] MEDS ORDERED: Sodium Chloride 0.9% 250 ML IV ONE (19:24)
[2016-11-17] MEDS ORDERED: Pramipexole 0.25 MG Tab PO SCH (21:00)
[2016-11-17] MEDS ORDERED: Famotidine 20 MG Tab PO SCH (21:00)
[2016-11-17] MEDS ORDERED: Enoxaparin 100 MG/1 ML Syringe SUBCUT SCH (21:00)
[2016-11-17] MEDS ORDERED: LINAGLIPTIN 5 MG PO SCH (21:00)
[2016-11-17] MEDS ORDERED: Simvastatin 10 MG Tab PO SCH (21:00)
[2016-11-17] MEDS: Docusate Sodium 100 MG Cap PO SCH (22:36)
[2016-11-17] MEDS: glipiZIDE 5 MG Tab PO SCH (22:36)
[2016-11-17] MEDS: Acetaminophen/oxyCODONE 325-5 MG Tab PO PRN ×2 (22:36→23:19)
[2016-11-17] MEDS: Furosemide 40 MG Tab PO SCH (22:36)
[2016-11-17] MEDS ORDERED: Enoxaparin 100 MG/1 ML Syringe SUBCUT ONE (23:00)
[2016-11-18] MEDS: Clindamycin Phosphate 600 MG in Sodium Chloride 0.9% 100 ML IV SCH ×2 (05:30→12:19)
[2016-11-18] MEDS: Acetaminophen/oxyCODONE 325-5 MG Tab PO PRN ×2 (06:37→15:26)
[2016-11-18] MEDS ORDERED: Multivitamins,Therapeutic Tab PO SCH (07:00)
[2016-11-18] MEDS: Docusate Sodium 100 MG Cap PO SCH (08:26)
[2016-11-18] MEDS: Furosemide 40 MG Tab PO SCH (08:26)
[2016-11-18] MEDS: glipiZIDE 5 MG Tab PO SCH (08:27)
[2016-11-18] MEDS: Insulin Aspart 100 Units/ML 3 ML Pen SUBCUT SCH ×2 (08:33→12:18)
--- NOTE | 2016-11-18 08:41 | PCM48HPAN ---
Post Anesthesia Note - EVALUATION WITHIN 48HRS OF ANESTHETIC Vital Signs in Normal Range: Yes Patient Participated in Evaluation: Yes Respiratory Function Stable: Yes Airway Patent: Yes Cardiovascular Function Stable: Yes Hydration Status Stable: Yes Pain Control Satisfactory: Yes Nausea and Vomiting Control Satisfactory: Yes Mental Status Recovered: Yes - COMMENTS/OBSERVATIONS Free Text/Narrative:: Patient denied any headache, residual numbness/tingling to lower extremities, or back pain.
[2016-11-18] MEDS ORDERED: Cholecalciferol (Vitamin D3) 1,000 Unit Tab PO SCH (09:00)
[2016-11-18] MEDS ORDERED: Famotidine 20 MG Tab PO SCH (09:00)
[2016-11-18] MEDS ORDERED: Warfarin 5 MG Tab PO SCH (09:00)
[2016-11-18] MEDS ORDERED: Metoprolol Succinate 50 MG Tab.ER PO SCH (09:00)
[2016-11-18] MEDS ORDERED: Levothyroxine 88 MCG Tab PO SCH (09:00)
[2016-11-18] MEDS ORDERED: Lisinopril 20 MG Tab PO SCH (09:00)
[2016-11-18] MEDS ORDERED: Folic Acid 1 MG Tab PO SCH (09:00)
[2016-11-18] MEDS ORDERED: Allopurinol 100 MG Tab PO SCH (09:00)
[2016-11-18] MEDS ORDERED: Diltiazem 300 MG Cap.CD PO SCH (09:00)
[2016-11-18] MEDS ORDERED: Pneumococcal 13-Valent Conjugate Vaccine 0.5 ML Syringe IM ONE (09:25)
[2016-11-18] MEDS ORDERED: Furosemide 20 MG Tab PO SCH (11:00)
--- NOTE | 2016-11-18 11:39 | PCM.CONSN ---
- General Info Date of Service: 11/18/16 Admission Dx/Problem (Free Text): Admission Diagnosis/Problem Admission Diagnosis/Problem Osteoarthritis of knee POD #[address] Mukherjee Pain under good control, no nausea, tolerating meals. Voiding s/p gibbs DC. Plans for DC home with sister today. Functional Status: Reports: Pain Controlled, Tolerating Diet, Ambulating, Urinating, Incentive Spirometry. Denies: New Symptoms - Review of Systems General: Reports: No Symptoms HEENT: Reports: No Symptoms Pulmonary: Reports: No Symptoms Cardiovascular: Reports: No Symptoms Gastrointestinal: Reports: No Symptoms Genitourinary: Reports: No Symptoms Musculoskeletal: Reports: Leg Pain (rt knee; pain controlled) Skin: Reports: No Symptoms Neurological: Reports: No Symptoms Psychiatric: Reports: No Symptoms - Patient Data Vitals - Most Recent: Last Vital Signs Temp 98.1 F 11/18/16 07:49 Pulse 70 11/18/16 08:27 Resp 18 11/18/16 10:00 BP 112/53 L 11/18/16 08:27 Pulse Ox 96 11/18/16 10:00 Weight - Most Recent: 258 lb 8 oz I&O - Last 24 Hours: Intake & Output 11/17/16 11/18/16 11/18/16 22:59 06:59 14:59 Intake Total 300 854 Output Total 850 Balance 300 4 Lab Results Last 24 Hours: Laboratory Results - last 24 hr 11/17/16 11/17/16 11/17/16 Range/Units 21:34 22:20 22:20 WBC 9.90 (3.98-10.04) K/mm3 RBC 3.57 L (3.98-5.22) M/mm3 Hgb 10.7 L (11.2-15.7) gm/L Hct 33.4 L (34.1-44.9) % MCV 93.6 (79.4-94.8) fl MCH 30.0 (25.6-32.2) pg MCHC 32.0 L (32.2-35.5) g/dl RDW Std Deviation 50.0 H (36.4-46.3) fL Plt Count 140 L (182-369) K/mm3 MPV 10.6 (9.4-12.3) fl Neut % (Auto) 93.5 H (34.0-71.1) % Lymph % (Auto) 4.5 L (19.3-51.7) % [place] % (Auto) 1.7 L (4.7-12.5) % Eos % (Auto) 0.1 L (0.7-5.8) Baso % (Auto) 0.1 (0.1-1.2) % Neut # (Auto) 9.25 H (1.56-6.13) K/mm3 Lymph # (Auto) 0.45 L (1.18-3.74) K/mm3 [place] # (Auto) 0.17 L (0.24-0.36) K/mm3 Eos # (Auto) 0.01 L (0.04-0.36) K/mm3 Baso # (Auto) 0.01 (0.01-0.08) K/mm3 Manual Slide Review Abnormal smear PT (8.0-13.0) SECONDS INR Sodium 138 (136-145) mEq/L Potassium 5.2 H (3.5-5.1) mEq/L Chloride 103 (98-107) mEq/L Carbon Dioxide 28 (21-32) mEq/L Anion Gap 12.2 (5-15) BUN 40 H (7-18) mg/dL Creatinine 1.8 H (0.55-1.02) mg/dL Est Cr Clr Drug Dosing 20.69 mL/min Estimated GFR (MDRD) 28 (>60) mL/min BUN/Creatinine Ratio 22.2 H (14-18) Glucose 290 H (83-115) mg/dL POC Glucose 269 H (83-110) mg/dL Calcium 9.0 (8.5-10.1) mg/dL Total Bilirubin (0.2-1.0) mg/dL AST (15-37) U/L ALT (14-59) U/L Alkaline Phosphatase (46-116) U/L Total Protein (6.4-8.2) g/dl Albumin (3.4-5.0) g/dl Globulin gm/dL Albumin/Globulin Ratio (1-2) 11/18/16 11/18/16 11/18/16 Range/Units 05:37 05:37 05:37 WBC 8.31 (3.98-10.04) K/mm3 RBC 3.30 L (3.98-5.22) M/mm3 Hgb 9.8 L (11.2-15.7) gm/L Hct 30.7 L (34.1-44.9) % MCV 93.0 (79.4-94.8) fl MCH 29.7 (25.6-32.2) pg MCHC 31.9 L (32.2-35.5) g/dl RDW Std Deviation 48.9 H (36.4-46.3) fL Plt Count 138 L (182-369) K/mm3 MPV 10.7 (9.4-12.3) fl Neut % (Auto) 90.5 H (34.0-71.1) % Lymph % (Auto) 5.9 L (19.3-51.7) % [place] % (Auto) 3.4 L (4.7-12.5) % Eos % (Auto) 0 L (0.7-5.8) Baso % (Auto) 0.1 (0.1-1.2) % Neut # (Auto) 7.52 H (1.56-6.13) K/mm3 Lymph # (Auto) 0.49 L (1.18-3.74) K/mm3 [place] # (Auto) 0.28 (0.24-0.36) K/mm3 Eos # (Auto) 0.00 L (0.04-0.36) K/mm3 Baso # (Auto) 0.01 (0.01-0.08) K/mm3 Manual Slide Review Abnormal smear PT 11.3 (8.0-13.0) SECONDS INR 1.03 Sodium 138 (136-145) mEq/L Potassium 4.5 (3.5-5.1) mEq/L Chloride 104 (98-107) mEq/L Carbon Dioxide 28 (21-32) mEq/L Anion Gap 10.5 (5-15) BUN 38 H (7-18) mg/dL Creatinine 1.7 H (0.55-1.02) mg/dL Est Cr Clr Drug Dosing 21.91 mL/min Estimated GFR (MDRD) 29 (>60) mL/min BUN/Creatinine Ratio 22.4 H (14-18) Glucose 243 H (83-115) mg/dL POC Glucose (83-110) mg/dL Calcium 8.8 (8.5-10.1) mg/dL Total Bilirubin 0.5 (0.2-1.0) mg/dL AST 18 (15-37) U/L ALT 17 (14-59) U/L Alkaline Phosphatase 65 (46-116) U/L Total Protein 6.7 (6.4-8.2) g/dl Albumin 3.2 L (3.4-5.0) g/dl Globulin 3.5 gm/dL Albumin/Globulin Ratio 0.9 L (1-2) 11/18/16 Range/Units 05:54 WBC (3.98-10.04) K/mm3 RBC (3.98-5.22) M/mm3 Hgb (11.2-15.7) gm/L Hct (34.1-44.9) % MCV (79.4-94.8) fl MCH (25.6-32.2) pg MCHC (32.2-35.5) g/dl RDW Std Deviation (36.4-46.3) fL Plt Count (182-369) K/mm3 MPV (9.4-12.3) fl Neut % (Auto) (34.0-71.1) % Lymph % (Auto) (19.3-51.7) % [place] % (Auto) (4.7-12.5) % Eos % (Auto) (0.7-5.8) Baso % (Auto) (0.1-1.2) % Neut # (Auto) (1.56-6.13) K/mm3 Lymph # (Auto) (1.18-3.74) K/mm3 [place] # (Auto) (0.24-0.36) K/mm3 Eos # (Auto) (0.04-0.36) K/mm3 Baso # (Auto) (0.01-0.08) K/mm3 Manual Slide Review PT (8.0-13.0) SECONDS INR Sodium (136-145) mEq/L Potassium (3.5-5.1) mEq/L Chloride (98-107) mEq/L Carbon Dioxide (21-32) mEq/L Anion Gap (5-15) BUN (7-18) mg/dL Creatinine (0.55-1.02) mg/dL Est Cr Clr Drug Dosing mL/min Estimated GFR (MDRD) (>60) mL/min BUN/Creatinine Ratio (14-18) Glucose (83-115) mg/dL POC Glucose 231 H (83-110) mg/dL Calcium (8.5-10.1) mg/dL Total Bilirubin (0.2-1.0) mg/dL AST (15-37) U/L ALT (14-59) U/L Alkaline Phosphatase (46-116) U/L Total Protein (6.4-8.2) g/dl Albumin (3.4-5.0) g/dl Globulin gm/dL Albumin/Globulin Ratio (1-2) Med Orders - Current: Current Medications Allopurinol (Zyloprim) 200 mg PO DAILY [facility] Last Admin: 11/18/16 08:27 Dose: 200 mg Aspirin (Halfprin) 81 mg PO QPM [facility] Bisacodyl (Dulcolax) 5 mg PO DAILY PRN PRN Reason: Constipation Calcium Carbonate/Glycine (Tums) 500 mg PO DAILY PRN PRN Reason: GERD symptoms Cholecalciferol (Vitamin D3) 5,000 units PO DAILY [facility] Last Admin: 11/18/16 08:26 Dose: 5,000 units Diltiazem HCl (Cardizem Cd) 300 mg PO DAILY [facility] Last Admin: 11/18/16 08:26 Dose: 300 mg Docusate Sodium (Colace) 100 mg PO BID [facility] Last Admin: 11/18/16 08:26 Dose: 100 mg Enoxaparin Sodium (Lovenox) 30 mg SUBCUT BEDTIME [facility] Famotidine (Pepcid) 20 mg PO DAILY [facility] Last Admin: 11/18/16 08:27 Dose: 20 mg Folic Acid (Folic Acid) 0.5 mg PO DAILY [facility] Last Admin: 11/18/16 08:25 Dose: 0.5 mg Furosemide (Lasix) 40 mg PO BID [facility] Last Admin: 11/18/16 08:26 Dose: 40 mg Furosemide (Lasix) 20 mg PO WITHLUNCH [facility] Glipizide (Glucotrol) 5 mg PO BID [facility] Last Admin: 11/18/16 08:27 Dose: 5 mg Hydralazine HCl (Apresoline) 20 mg IVPUSH Q4H PRN PRN Reason: Hypertension Clindamycin Phosphate 600 mg/ (Sodium Chloride) 104 mls @ 208 mls/hr IV Q6H [facility] Stop: 11/18/16 11:29 Last Admin: 11/18/16 05:30 Dose: 208 mls/hr Insulin Aspart (Novolog) 0 unit SUBCUT QIDACANDBED [facility] PRN Reason: Protocol Last Admin: 11/18/16 08:33 Dose: 2 unit Levothyroxine Sodium (Synthroid) 88 mcg PO DAILY [facility] Last Admin: 11/18/16 08:26 Dose: 88 mcg Lisinopril (Prinivil) 40 mg PO DAILY [facility] Last Admin: 11/18/16 08:26 Dose: 20 mg Magnesium Hydroxide (Milk Of Magnesia) 30 ml PO BID PRN PRN Reason: Constipation Magnesium Sulfate (Pharmacy To Dose - Magnesium Replacement) 0 dose .XX ASDIRECTED PRN PRN Reason: RX TO WATCH MAG LEVELS Metoprolol Succinate (Toprol Xl) 200 mg PO DAILY [facility] Last Admin: 11/18/16 08:27 Dose: 100 mg Metoprolol Tartrate (Lopressor) 5 mg IVPUSH Q4H PRN PRN Reason: Tachycardia Morphine Sulfate (Morphine) 2 mg IVPUSH Q2H PRN PRN Reason: Breakthrough Pain Multivitamins (Thera) 1 each PO WITHBREAKFAST [facility] Last Admin: 11/18/16 06:37 Dose: 1 each Naloxone HCl (Narcan) 0.1 mg IVPUSH Q5M PRN PRN Reason: Oversedation Ondansetron HCl (Zofran) 4 mg IVPUSH Q6H PRN PRN Reason: Nausea/Vomiting Oxycodone/Acetaminophen (Percocet 325-5 Mg) 1 - 2 tab PO Q4H PRN PRN Reason: Pain Last Admin: 11/18/16 06:37 Dose: 2 tab Acetaminophen (Arthritis Er 650 Mg) 0 each PO DAILY PRN PRN Reason: Pain Linagliptin [ (Tradjenta] 5 Mg)) 0 each PO BEDTIME [facility] Last Admin: 11/18/16 07:41 Dose: Not Given Potassium Chloride (Pharmacy To Dose - Potassium Replacement) 0 dose .XX ASDIRECTED PRN PRN Reason: RX TO WATCH K LEVELS Pramipexole Dihydrochloride (Mirapex) 0.25 mg PO BEDTIME [facility] Last Admin: 11/17/16 22:36 Dose: 0.25 mg Senna (Senna) 8.6 mg PO BID PRN PRN Reason: Constipation Simvastatin (Zocor) 10 mg PO BEDTIME [facility] Last Admin: 11/17/16 22:36 Dose: 10 mg Warfarin Sodium (Pharmacy To Dose - Warfarin) 0 dose .XX ASDIRECTED PRN PRN Reason: RX TO DOSE COUMADIN Warfarin Sodium (Coumadin) 7.5 mg PO DAILY@1800 [facility] Stop: 11/18/16 21:00 Discontinued Medications Bupivacaine HCl (Marcaine 0.25%) Confirm Administered Dose 30 ml .ROUTE .STK- MED ONE Stop: 11/17/16 09:35 Last Admin: 11/17/16 12:14 Dose: 30 ml Bupivacaine HCl (Sensorcaine-Mpf 0.25%) 4 ml INJECT ONETIME ONE Stop: 11/17/16 10:31 Last Admin: 11/17/16 20:24 Dose: Not Given Cefazolin Sodium (Ancef) Confirm Administered Dose 2 gm .ROUTE .STK-MED ONE Stop: 11/17/16 08:27 Clindamycin Phosphate (Cleocin) Confirm Administered Dose 900 mg .ROUTE .STK- MED ONE Stop: 11/17/16 09:42 Last Admin: 11/17/16 12:07 Dose: 900 mg Clindamycin Phosphate (Cleocin) Confirm Administered Dose 900 mg .ROUTE .STK- MED ONE Stop: 11/17/16 11:08 Morphine Sulfate 8 mg/Epinephrine HCl 0.3 mg/Ketorolac Tromethamine 30 mg/ Sodium Chloride 27.9 ml 0 mg .XX ONETIME ONE Stop: 11/17/16 09:01 Last Admin: 11/17/16 20:23 Dose: Not Given Diphenhydramine HCl (Benadryl) 25 mg IVPUSH Q6H PRN PRN Reason: Pruritis Stop: 11/17/16 18:00 Enoxaparin Sodium (Lovenox) 100 mg SUBCUT Q12HR [facility] Last Admin: 11/18/16 07:43 Dose: Not Given Enoxaparin Sodium (Lovenox) 100 mg SUBCUT ONETIME ONE Stop: 11/17/16 23:01 Last Admin: 11/17/16 23:23 Dose: 100 mg Ephedrine Sulfate (Ephedrine Sulfate) Confirm Administered Dose 50 mg .ROUTE .STK-MED ONE Stop: 11/17/16 10:07 Famotidine (Pepcid) 20 mg PO Q12H [facility] Last Admin: 11/17/16 22:36 Dose: 20 mg Fentanyl (Sublimaze) Confirm Administered Dose 100 mcg .ROUTE .STK-MED ONE Stop: 11/17/16 08:27 Lactated Ringer's (Ringers, Lactated) 1,000 mls @ 125 mls/hr IV ASDIRECTED [facility] Stop: 11/17/16 23:00 Lidocaine HCl (Xylocaine-Mpf 1%) Confirm Administered Dose 4 mls @ as directed .ROUTE .STK-MED ONE Stop: 11/17/16 08:27 Lactated Ringer's (Ringers, Lactated) Confirm Administered Dose 1,000 mls @ as directed .ROUTE .STK-MED ONE Stop: 11/17/16 12:23 Sodium Chloride (Normal Saline) 250 mls @ 999 mls/hr IV .BOLUS ONE Stop: 11/17/16 19:39 Last Admin: 11/17/16 22:31 Dose: 999 mls/hr Iodine (Iodine 2% Mild Tincture) Confirm Administered Dose 30 ml .ROUTE .STK- MED ONE Stop: 11/17/16 09:34 Last Admin: 11/17/16 12:03 Dose: 18 ml Ketamine HCl (Ketalar) Confirm Administered Dose 500 mg .ROUTE .STK-MED ONE Stop: 11/17/16 12:02 Lidocaine/Sodium Bicarbonate (Buffered Lidocaine 1% In Ns 8.4%) 0.25 ml .XX ONETIME PRN PRN Reason: Prior to IV Start Stop: 11/17/16 18:00 Midazolam HCl (Versed 1 Mg/Ml) Confirm Administered Dose 2 mg .ROUTE .STK-MED ONE Stop: 11/17/16 10:03 Morphine Sulfate (Duramorph Pf) Confirm Administered Dose 10 mg .ROUTE .STK-MED ONE Stop: 11/17/16 10:58 Ondansetron HCl (Zofran) 4 mg IVPUSH ONETIME PRN PRN Reason: Nausea/Vomiting Stop: 11/17/16 18:00 Phenylephrine HCl (Keyur-Synephrine) Confirm Administered Dose 10 mg .ROUTE .STK- MED ONE Stop: 11/17/16 10:07 Pneumococcal 13-Valent Conj Vacc (Prevnar 13) 0.5 ml IM .ONCE ONE Stop: 11/18/16 09:26 Propofol (Diprivan 20 Ml) Confirm Administered Dose 200 mg .ROUTE .STK-MED ONE Stop: 11/17/16 08:27 Propofol (Diprivan 20 Ml) Confirm Administered Dose 200 mg .ROUTE .STK-MED ONE Stop: 11/17/16 12:03 Sodium Chloride (Saline Flush) 10 ml FLUSH ASDIRECTED PRN PRN Reason: Keep Vein Open Stop: 11/17/16 18:00 Tranexamic Acid (Cyklokapron) Confirm Administered Dose 1,000 mg .ROUTE .STK- MED ONE Stop: 11/17/16 09:34 Last Admin: 11/17/16 12:21 Dose: 1,000 mg Triamcinolone Acetonide (Kenalog-40) Confirm Administered Dose 80 mg .ROUTE .STK -MED ONE Stop: 11/17/16 09:34 Last Admin: 11/17/16 12:48 Dose: 80 mg Vancomycin HCl (Vancomycin) Confirm Administered Dose 1 gm .ROUTE .STK-MED ONE Stop: 11/17/16 09:34 Last Admin: 11/17/16 12:17 Dose: 1 gm Warfarin Sodium (Coumadin) 5 mg PO DAILY@1800 [facility] Stop: 11/17/16 21:00 Last Admin: 11/17/16 17:05 Dose: 5 mg Warfarin Sodium (Coumadin) 5 mg PO DAILY [facility] Warfarin Sodium (Pharmacy To Dose - Warfarin) 1 dose .XX ASDIRECTED [facility] - Exam Quality Assessment: DVT Prophylaxis General: Alert, Oriented, Cooperative, No Acute Distress HEENT: Pupils Equal, EOMI, Mucous Membr. Moist/[place] Neck: Supple Lungs: Clear to Auscultation, Normal Respiratory Effort, Decreased Breath Sounds (bases) Cardiovascular: Irregular Rhythm GI/Abdominal Exam: Normal Bowel Sounds, Soft, Non-Tender (Female) Exam: Deferred Back Exam: Normal Inspection Extremities: Other (SCD's/teds bilat, ice to knee. CMS + distally and =) Peripheral Pulses: 1+: Dorsalis Pedis (L), Dorsalis Pedis (R) Wound/Incisions: Dressing Dry and Intact Neurological: No New Focal Deficit Psy/Mental Status: Alert, Normal Affect, Normal Mood Consult PN Assessment/Plan POD#: 1 Procedures: Procedures ASSAY OF BLOOD/URIC ACID (08/11/16) ASSAY OF FERRITIN (09/29/16) ASSAY OF HAPTOGLOBIN QUANT (10/14/16) ASSAY OF IRON (10/14/16) ASSAY OF NATRIURETIC PEPTIDE (04/23/15) ASSAY OF PARATHORMONE (08/08/15) ASSAY OF PREALBUMIN (11/03/16) ASSAY OF PROTEIN URINE (08/08/15) ASSAY OF TRANSFERRIN (08/08/15) ASSAY OF TROPONIN QUANT (04/23/15) ASSAY OF URINE CREATININE (08/08/15) ASSAY THYROID STIM HORMONE (09/26/16) BLOOD TYPING SEROLOGIC ABO (04/16/15) BLOOD TYPING SEROLOGIC RH(D) (04/16/15) CHEST X-RAY 2VW FRONTAL&LATL (09/29/16) COMP SCREEN MAMMOGRAM ADD-ON (07/03/15) COMPLETE CBC AUTOMATED (09/26/16) COMPLETE CBC W/AUTO DIFF WBC (11/03/16) COMPREHEN METABOLIC PANEL (11/03/16) COMPUTER DX MAMMOGRAM ADD-ON (12/04/15) DESTRUCT B9 LESION 1-14 (04/07/16) DRAIN/INJ JOINT/BURSA W/O US (10/31/14) DXA BONE DENSITY AXIAL (11/04/16) ELECTROCARDIOGRAM TRACING (04/23/15) EMERGENCY DEPT VISIT (04/23/15) EXTREMITY STUDY (04/16/15) GAIT TRAINING THERAPY (04/23/15) GLUCOSE BLOOD TEST (04/23/15) GLYCOSYLATED HEMOGLOBIN TEST (09/26/16) HYDRATE IV INFUSION ADD-ON (04/23/15) HYDRATION IV INFUSION INIT (04/23/15) LACTATE (LD) (LDH) ENZYME (10/14/16) LIPID PANEL (09/26/16) MEASURE BLOOD OXYGEN LEVEL (04/16/15) MED NUTRITION INDIV SUBSEQ (01/15/15) MEDICAL NUTRITION INDIV IN (01/04/15) METABOLIC PANEL TOTAL CA (10/13/16) MR-STAPH DNA AMP PROBE (10/13/16) NEEDLE LOCALIZATION BY XRAY (10/31/14) OFFICE/OUTPATIENT VISIT EST (10/14/16) OT EVALUATION (04/23/15) PROTHROMBIN TIME (11/03/16) PT EVALUATION (04/23/15) RBC ANTIBODY SCREEN (04/16/15) RENAL FUNCTION PANEL (08/11/16) ROUTINE VENIPUNCTURE (11/03/16) SELF CARE MNGMENT TRAINING (04/23/15) THERAPEUTIC ACTIVITIES (04/16/15) THERAPEUTIC EXERCISES (04/23/15) THROMBOPLASTIN TIME PARTIAL (11/03/16) TISSUE EXAM BY PATHOLOGIST (04/07/14) ULTRASOUND BREAST COMPLETE (07/12/15) URINALYSIS AUTO W/SCOPE (08/11/16) VITAMIN B-12 (10/14/16) VITAMIN D 25 HYDROXY (09/29/16) X-RAY EXAM HIP UNI 1 VIEW (04/16/15) X-RAY EXAM L-S SPINE 2/3 VWS (11/12/16) (1) S/P total knee arthroplasty SNOMED Code(s): 6552989168483, 687260753, 3261641114519 Code(s): Z96.659 - PRESENCE OF UNSPECIFIED ARTIFICIAL KNEE JOINT Priority: High Current Visit: Yes Qualifiers: Laterality: right Qualified Code(s): Z96.651 - Presence of right artificial knee joint (2) Osteoarthritis SNOMED Code(s): 184995465 Code(s): M19.90 - UNSPECIFIED OSTEOARTHRITIS, UNSPECIFIED SITE Priority: High Current Visit: Yes Qualifiers: Osteoarthritis location: knee Osteoarthritis type: primary Laterality: right Qualified Code(s): M17.11 - Unilateral primary osteoarthritis, right knee (3) Diabetes type 2, controlled SNOMED Code(s): 76622986 Code(s): E11.9 - TYPE 2 DIABETES MELLITUS WITHOUT COMPLICATIONS Priority: Medium Current Visit: Yes Qualifiers: Diabetes mellitus complication status: without complication Diabetes mellitus penitentiary insulin use: without manager terminal use Qualified Code(s): E11.9 - Type 2 diabetes mellitus without complications (4) JET on CPAP SNOMED Code(s): 82054980 Code(s): G47.33 - OBSTRUCTIVE SLEEP APNEA (ADULT) (PEDIATRIC); Z99.89 - DEPENDENCE ON OTHER ENABLING MACHINES AND DEVICES Priority: Medium Current Visit: No (5) CKD (chronic kidney disease) stage 3, GFR 30-59 ml/min SNOMED Code(s): 113317397 Code(s): N18.3 - CHRONIC KIDNEY DISEASE, STAGE 3 (MODERATE) Current Visit: Yes (6) Atrial fibrillation SNOMED Code(s): 90485631 Code(s): I48.91 - UNSPECIFIED ATRIAL FIBRILLATION Priority: Medium Current Visit: No Qualifiers: Atrial fibrillation type: chronic Qualified Code(s): I48.2 - Chronic atrial fibrillation (7) Pacemaker SNOMED Code(s): 221640663, 269275604 Code(s): Z95.0 - PRESENCE OF CARDIAC PACEMAKER Priority: Medium Current Visit: No (8) Hypertension SNOMED Code(s): 48106325 Code(s): I10 - ESSENTIAL (PRIMARY) HYPERTENSION Priority: Medium Current Visit: No Qualifiers: Hypertension type: unspecified Qualified Code(s): I10 - Essential (primary ) hypertension (9) Hypothyroidism SNOMED Code(s): 25207480 Code(s): E03.9 - HYPOTHYROIDISM, UNSPECIFIED Priority: Medium Current Visit: No Qualifiers: Hypothyroidism type: unspecified Qualified Code(s): E03.9 - Hypothyroidism , unspecified Problem List Initiated/Reviewed/Updated: Yes My Orders Last 24 Hours: My Active Orders 11/18/16 08:15 Insulin Aspart [NovoLOG] See Protocol SUBCUT QIDACANDBED 11/18/16 Lunch Consistent Carbohydrate Diet [DIET] Plan: I/P: S/P Rt TKA with Dr. Mukherjee- POD #1 -Pain management and DVT prophylax per orthopedics/primary team -PT/OT -RT/IS -Hgb stable at 9.8 today (10.7 preop) -PLT stable 138 (140 yesterday) Chronic conditions: continue home meds DM 2- cont glipizide, SSI during stay, A1C preop was 6.6 so has had good control prior; however sugars have been running higher, 200's during stay here. Cont close monitoring. HTN- well controlled Afib- on coumadin, will restart today, bridge with lovenox, lovenox teaching per nursing prior to DC home with recheck of INR on this week with PCP Alix Bowden. JET on CPAP Gout HLD CKD stage 3- stable, creat 1.7 today Other: CM/SW for assist with DC planning--plans DC home today with sister to help her at home. OK for dc home today after lovenox teaching from Hospitalist standpoint. Again, as above will write Rx for INR to be rechecked by PCPAlix on , . Patient is Full code status.
[2016-11-18 15:55] VITALS: BP 126/69
[2016-11-18] MEDS ORDERED: Aspirin 81 MG Tab.EC PO SCH (18:00)
[2016-11-18] MEDS ORDERED: Warfarin 7.5 MG Tab PO SCH (18:00)
[2016-11-18] MEDS ORDERED: Enoxaparin 30 MG/0.3 ML Syringe SUBCUT SCH (21:00)
--- NOTE | 2016-11-20 09:44 | PCM.SURGPN ---
- General Info Date of Service: 11/18/16 POD#: 1 Functional Status: Reports: Pain Controlled, Tolerating Diet, Ambulating, Urinating (The pt's pain is controlled. She has been able to participate in P.T. and O.T.), Incentive Spirometry. Denies: New Symptoms - Patient Data Vitals - Most Recent: Last Vital Signs Temp 98.1 F 11/18/16 15:21 Pulse 71 11/18/16 15:21 Resp 14 11/18/16 15:21 BP 126/69 11/18/16 15:21 Pulse Ox 99 11/18/16 15:21 Weight - Most Recent: 258 lb 8 oz Med Orders - Current: Current Medications Discontinued Medications Allopurinol (Zyloprim) 200 mg PO DAILY [facility] Last Admin: 11/18/16 08:27 Dose: 200 mg Aspirin (Halfprin) 81 mg PO QPM [facility] Bisacodyl (Dulcolax) 5 mg PO DAILY PRN PRN Reason: Constipation Bupivacaine HCl (Marcaine 0.25%) Confirm Administered Dose 30 ml .ROUTE .STK- MED ONE Stop: 11/17/16 09:35 Last Admin: 11/17/16 12:14 Dose: 30 ml Bupivacaine HCl (Sensorcaine-Mpf 0.25%) 4 ml INJECT ONETIME ONE Stop: 11/17/16 10:31 Last Admin: 11/17/16 20:24 Dose: Not Given Calcium Carbonate/Glycine (Tums) 500 mg PO DAILY PRN PRN Reason: GERD symptoms Cefazolin Sodium (Ancef) Confirm Administered Dose 2 gm .ROUTE .STK-MED ONE Stop: 11/17/16 08:27 Cholecalciferol (Vitamin D3) 5,000 units PO DAILY [facility] Last Admin: 11/18/16 08:26 Dose: 5,000 units Clindamycin Phosphate (Cleocin) Confirm Administered Dose 900 mg .ROUTE .STK- MED ONE Stop: 11/17/16 09:42 Last Admin: 11/17/16 12:07 Dose: 900 mg Clindamycin Phosphate (Cleocin) Confirm Administered Dose 900 mg .ROUTE .STK- MED ONE Stop: 11/17/16 11:08 Morphine Sulfate 8 mg/Epinephrine HCl 0.3 mg/Ketorolac Tromethamine 30 mg/ Sodium Chloride 27.9 ml 0 mg .XX ONETIME ONE Stop: 11/17/16 09:01 Last Admin: 11/17/16 20:23 Dose: Not Given Diltiazem HCl (Cardizem Cd) 300 mg PO DAILY [facility] Last Admin: 11/18/16 08:26 Dose: 300 mg Diphenhydramine HCl (Benadryl) 25 mg IVPUSH Q6H PRN PRN Reason: Pruritis Stop: 11/17/16 18:00 Docusate Sodium (Colace) 100 mg PO BID [facility] Last Admin: 11/18/16 08:26 Dose: 100 mg Enoxaparin Sodium (Lovenox) 30 mg SUBCUT BEDTIME [facility] Enoxaparin Sodium (Lovenox) 100 mg SUBCUT Q12HR [facility] Last Admin: 11/18/16 07:43 Dose: Not Given Enoxaparin Sodium (Lovenox) 100 mg SUBCUT ONETIME ONE Stop: 11/17/16 23:01 Last Admin: 11/17/16 23:23 Dose: 100 mg Ephedrine Sulfate (Ephedrine Sulfate) Confirm Administered Dose 50 mg .ROUTE .STK-MED ONE Stop: 11/17/16 10:07 Famotidine (Pepcid) 20 mg PO Q12H [facility] Last Admin: 11/17/16 22:36 Dose: 20 mg Famotidine (Pepcid) 20 mg PO DAILY [facility] Last Admin: 11/18/16 08:27 Dose: 20 mg Fentanyl (Sublimaze) Confirm Administered Dose 100 mcg .ROUTE .STK-MED ONE Stop: 11/17/16 08:27 Folic Acid (Folic Acid) 0.5 mg PO DAILY [facility] Last Admin: 11/18/16 08:25 Dose: 0.5 mg Furosemide (Lasix) 40 mg PO BID [facility] Last Admin: 11/18/16 08:26 Dose: 40 mg Furosemide (Lasix) 20 mg PO WITHLUNCH [facility] Last Admin: 11/18/16 12:18 Dose: 20 mg Glipizide (Glucotrol) 5 mg PO BID [facility] Last Admin: 11/18/16 08:27 Dose: 5 mg Hydralazine HCl (Apresoline) 20 mg IVPUSH Q4H PRN PRN Reason: Hypertension Lactated Ringer's (Ringers, Lactated) 1,000 mls @ 125 mls/hr IV ASDIRECTED [facility] Stop: 11/17/16 23:00 Lidocaine HCl (Xylocaine-Mpf 1%) Confirm Administered Dose 4 mls @ as directed .ROUTE .[facility]-MED ONE Stop: 11/17/16 08:27 Clindamycin Phosphate 600 mg/ (Sodium Chloride) 104 mls @ 208 mls/hr IV Q6H [facility] Stop: 11/18/16 11:29 Last Admin: 11/18/16 12:19 Dose: 208 mls/hr Lactated Ringer's (Ringers, Lactated) Confirm Administered Dose 1,000 mls @ as directed .ROUTE .K-MED ONE Stop: 11/17/16 12:23 Sodium Chloride (Normal Saline) 250 mls @ 999 mls/hr IV .BOLUS ONE Stop: 11/17/16 19:39 Last Admin: 11/17/16 22:31 Dose: 999 mls/hr Insulin Aspart (Novolog) 0 unit SUBCUT QIDACANDBED [facility] PRN Reason: Protocol Last Admin: 11/18/16 12:18 Dose: 1 unit Iodine (Iodine 2% Mild Tincture) Confirm Administered Dose 30 ml .ROUTE .[facility]- MED ONE Stop: 11/17/16 09:34 Last Admin: 11/17/16 12:03 Dose: 18 ml Ketamine HCl (Ketalar) Confirm Administered Dose 500 mg .ROUTE .[facility]-MED ONE Stop: 11/17/16 12:02 Levothyroxine Sodium (Synthroid) 88 mcg PO DAILY [facility] Last Admin: 11/18/16 08:26 Dose: 88 mcg Lidocaine/Sodium Bicarbonate (Buffered Lidocaine 1% In Ns 8.4%) 0.25 ml .XX ONETIME PRN PRN Reason: Prior to IV Start Stop: 11/17/16 18:00 Lisinopril (Prinivil) 40 mg PO DAILY [facility] Last Admin: 11/18/16 08:26 Dose: 20 mg Magnesium Hydroxide (Milk Of Magnesia) 30 ml PO BID PRN PRN Reason: Constipation Magnesium Sulfate (Pharmacy To Dose - Magnesium Replacement) 0 dose .XX ASDIRECTED PRN PRN Reason: RX TO WATCH MAG LEVELS Metoprolol Succinate (Toprol Xl) 200 mg PO DAILY [facility] Last Admin: 11/18/16 08:27 Dose: 100 mg Metoprolol Tartrate (Lopressor) 5 mg IVPUSH Q4H PRN PRN Reason: Tachycardia Midazolam HCl (Versed 1 Mg/Ml) Confirm Administered Dose 2 mg .ROUTE .STK-MED ONE Stop: 11/17/16 10:03 Morphine Sulfate (Morphine) 2 mg IVPUSH Q2H PRN PRN Reason: Breakthrough Pain Morphine Sulfate (Duramorph Pf) Confirm Administered Dose 10 mg .ROUTE .STK-MED ONE Stop: 11/17/16 10:58 Multivitamins (Thera) 1 each PO WITHBREAKFAST [facility] Last Admin: 11/18/16 06:37 Dose: 1 each Naloxone HCl (Narcan) 0.1 mg IVPUSH Q5M PRN PRN Reason: Oversedation Ondansetron HCl (Zofran) 4 mg IVPUSH Q6H PRN PRN Reason: Nausea/Vomiting Ondansetron HCl (Zofran) 4 mg IVPUSH ONETIME PRN PRN Reason: Nausea/Vomiting Stop: 11/17/16 18:00 Oxycodone/Acetaminophen (Percocet 325-5 Mg) 1 - 2 tab PO Q4H PRN PRN Reason: Pain Last Admin: 11/18/16 15:26 Dose: 2 tab Acetaminophen (Arthritis Er 650 Mg) 0 each PO DAILY PRN PRN Reason: Pain Linagliptin [ (Tradjenta] 5 Mg)) 0 each PO BEDTIME [facility] Last Admin: 11/18/16 07:41 Dose: Not Given Phenylephrine HCl (Keyur-Synephrine) Confirm Administered Dose 10 mg .ROUTE .STK- MED ONE Stop: 11/17/16 10:07 Pneumococcal 13-Valent Conj Vacc (Prevnar 13) 0.5 ml IM .ONCE ONE Stop: 11/18/16 09:26 Potassium Chloride (Pharmacy To Dose - Potassium Replacement) 0 dose .XX ASDIRECTED PRN PRN Reason: RX TO WATCH K LEVELS Pramipexole Dihydrochloride (Mirapex) 0.25 mg PO BEDTIME [facility] Last Admin: 11/17/16 22:36 Dose: 0.25 mg Propofol (Diprivan 20 Ml) Confirm Administered Dose 200 mg .ROUTE .STK-MED ONE Stop: 11/17/16 08:27 Propofol (Diprivan 20 Ml) Confirm Administered Dose 200 mg .ROUTE .STK-MED ONE Stop: 11/17/16 12:03 Senna (Senna) 8.6 mg PO BID PRN PRN Reason: Constipation Simvastatin (Zocor) 10 mg PO BEDTIME [facility] Last Admin: 11/17/16 22:36 Dose: 10 mg Sodium Chloride (Saline Flush) 10 ml FLUSH ASDIRECTED PRN PRN Reason: Keep Vein Open Stop: 11/17/16 18:00 Tranexamic Acid (Cyklokapron) Confirm Administered Dose 1,000 mg .ROUTE .STK- MED ONE Stop: 11/17/16 09:34 Last Admin: 11/17/16 12:21 Dose: 1,000 mg Triamcinolone Acetonide (Kenalog-40) Confirm Administered Dose 80 mg .ROUTE .STK -MED ONE Stop: 11/17/16 09:34 Last Admin: 11/17/16 12:48 Dose: 80 mg Vancomycin HCl (Vancomycin) Confirm Administered Dose 1 gm .ROUTE .STK-MED ONE Stop: 11/17/16 09:34 Last Admin: 11/17/16 12:17 Dose: 1 gm Warfarin Sodium (Pharmacy To Dose - Warfarin) 0 dose .XX ASDIRECTED PRN PRN Reason: RX TO DOSE COUMADIN Warfarin Sodium (Coumadin) 5 mg PO DAILY@1800 [facility] Stop: 11/17/16 21:00 Last Admin: 11/17/16 17:05 Dose: 5 mg Warfarin Sodium (Coumadin) 5 mg PO DAILY [facility] Warfarin Sodium (Pharmacy To Dose - Warfarin) 1 dose .XX ASDIRECTED [facility] Warfarin Sodium (Coumadin) 7.5 mg PO DAILY@1800 [facility] Stop: 11/18/16 21:00 - Exam Wound/Incisions: Dressing Dry and Intact General: Alert, Cooperative, No Acute Distress Extremities: Other (NVS intact for BLE. Osvaldo's negative for BLE. Near independent SLR RLE. ) - Problem List Review Problem List Initiated/Reviewed/Updated: Yes - Assessment Assessment (Free Text/Narrative):: POD#1 - right TKA - Plan Plan (Free Text/Narrative):: 1. Hgb 9.8 today. 2. Discharge to home today. The pt will have the assistance of her sister. 3. Close monitoring of blood sugars. 4. Lovenox bridge until INR therapeutic. The pt will have f/u with PCP for repeat INR this week. 5. Outpatient P.T. 6. 325mg ASA BID; TEDs, frequent mobility. The pt's case was discussed with Dr. Mukherjee.
--- NOTE | 2016-11-20 09:48 | PCM.DCSUM1 ---
Discharge Summary - Hospital Course Brief History: Giovanni is a 76 yo female who underwent right TKA with left knee cortisone injection with Dr. Mukherjee on 11-17-2016. The procedures were completed under spinal anesthesia with sedation. The pt tolerated the procedures well and was admitted to the Medical-Surgical Unit. The pt received paulette-operative antibiotic therapy. Medical managment was provided by the Hospitalist service and the pt's hospital course was uneventful. Her blood sugars were closely monitored. A mepilex dressing was applied to the surgical site at time of surgery and remained clean and dry. On POD#0, Coumadin was resumed and on POD#1 , Lovenox bridging therapy was initiated. SCDs and TEDs were also used for VTE prophylaxis. The pt participated in P.T. and O.T. and progressed well. She was allowed to WBAT and used a FWW for mobility. On POD#1, the pt's Hgb was 9.8. On POD#1, the pt was deemed appropriate for discharge to home with her family. - Discharge Data Discharge Date: 11/18/16 Discharge Disposition: Home, Self-Care 01 Condition: Good - Patient Summary/Data Consults: Consultations 11/17/16 09:04 Consult to Case Management [CONS] Routine Consult to Physician [CONS] Routine OT Evaluation and Treatment [CONS] Routine 11/17/16 09:08 PT Evaluation and Treatment [CONS] Routine - Patient Instructions Diet: Diabetic Diet Activity: As Tolerated Driving: Do Not Drive Showering/Bathing: May Shower Wound/Incision Care: Keep Operative Site/Wound Site Clean and Dry, Do NOT Change Dressing Notify Provider of: Fever, Increased Pain, Swelling and Redness, Drainage, Nausea and/or Vomiting Other/Special Instructions: Please get up and moving around every hour while awake. This helps to prevent blood clots. Please use your walker and have help with mobility as needed. You may schedule for P.T. Use the pain medication as needed. The medication may cause drowsiness and constipation. Contact your primary care provider for instructions if you are constipated. You may use a stool softener like docusate sodium or Colace 100mg twice daily and/or a laxative like Miralax daily for constipation. Wear the SEPIDEH hose during the day and you may remove these at night. Place ice to the knee often. Place a towel between your skin and the blue pad. Schedule an appointment with your primary care provider for 'routine post-op care'. Call the Clinic with questions or concerns - [phone]. - Discharge Plan Prescriptions/Med Rec: Acetaminophen/oxyCODONE [Percocet 325-5 MG] 1 - 2 tab PO Q4H PRN #60 tablet PRN Reason: Pain Docusate Sodium [Colace] 100 mg PO BID #60 cap Enoxaparin [Lovenox] 30 mg SUBCUT BEDTIME #3 syringe Home Medications: Home Meds Acetaminophen [Tylenol Arthritis Pain] 650 mg PO DAILY PRN 04/13/15 [History] Allopurinol [Zyloprim] 200 mg PO DAILY 04/13/15 [History] Diltiazem HCl [Cardizem Cd] 300 mg PO DAILY 04/13/15 [History] Lisinopril 40 mg PO DAILY 04/13/15 [History] Metoprolol Succinate [Toprol XL] 200 mg PO DAILY 04/13/15 [History] Simvastatin [Zocor] 10 mg PO BEDTIME 04/13/15 [History] Aspirin [Low Dose Aspirin EC] 81 mg PO QPM 04/16/15 [History] Warfarin [Coumadin] 5 mg PO DAILY 04/16/15 [History] Calcium Carbonate [Tums] 500 mg PO DAILY PRN 10/10/16 [History] Folic Acid 400 mcg PO DAILY 10/10/16 [History] Furosemide 40 mg PO BID 10/10/16 [History] Levothyroxine Sodium 88 mg PO DAILY 10/10/16 [History] Linagliptin [Tradjenta] 5 mg PO BEDTIME 10/10/16 [History] Pramipexole Di-HCl [Mirapex] 0.25 mg PO BEDTIME 10/10/16 [History] glipiZIDE [Glipizide] 5 mg PO BID 10/10/16 [History] Cholecalciferol (Vitamin D3) [Vitamin D3] 5,000 unit PO DAILY 11/14/16 [History] Furosemide 20 mg PO WITHLUNCH 11/17/16 [History] Acetaminophen/oxyCODONE [Percocet 325-5 MG] 1 - 2 tab PO Q4H PRN #60 tablet [Rx] Docusate Sodium [Colace] 100 mg PO BID #60 cap 11/18/16 [Rx] Enoxaparin [Lovenox] 30 mg SUBCUT BEDTIME #3 syringe 11/18/16 [Rx] Patient Handouts: Warfarin: What You Need to Know, Total Knee Replacement, Care After, Squd-ip-[id number], Sleep Apnea, [id number], Total Knee Replacement, [id number], Aspirin, ASA oral tablets, Knee Rehabilitation Guidelines Following Surgery, How and Where to Give Subcutaneous Enoxaparin Injections, Atrial Fibrillation, Xped-ps-Erox Referrals: Alix Bowden NP [Primary Care Provider] - 11/25/16 1:00 pm (Please return to hospital to have INR drawn on 11/20/2016. This value should be sent to Dr. Bowden. Then please follow-up with Dr. Bowden on November 25 at 1: 00pm. ) Marley Syed PA-C [Physician [employer]] - 11/25/16 1:00 pm (Please follow-up with Dr. Mukherjee on your previously scheduled appointment on November 25 at 1:00pm. Then the following apointment is on the following December 02 at 0945am. ) - Patient Data Vitals - Most Recent: Last Vital Signs Temp 98.1 F 11/18/16 15:21 Pulse 71 11/18/16 15:21 Resp 14 11/18/16 15:21 BP 126/69 11/18/16 15:21 Pulse Ox 99 11/18/16 15:21 Weight - Most Recent: 258 lb 8 oz Med Orders - Current: Current Medications Discontinued Medications Allopurinol (Zyloprim) 200 mg PO DAILY [facility] Last Admin: 11/18/16 08:27 Dose: 200 mg Aspirin (Halfprin) 81 mg PO QPM [facility] Bisacodyl (Dulcolax) 5 mg PO DAILY PRN PRN Reason: Constipation Bupivacaine HCl (Marcaine 0.25%) Confirm Administered Dose 30 ml .ROUTE .STK- MED ONE Stop: 11/17/16 09:35 Last Admin: 11/17/16 12:14 Dose: 30 ml Bupivacaine HCl (Sensorcaine-Mpf 0.25%) 4 ml INJECT ONETIME ONE Stop: 11/17/16 10:31 Last Admin: 11/17/16 20:24 Dose: Not Given Calcium Carbonate/Glycine (Tums) 500 mg PO DAILY PRN PRN Reason: GERD symptoms Cefazolin Sodium (Ancef) Confirm Administered Dose 2 gm .ROUTE .STK-MED ONE Stop: 11/17/16 08:27 Cholecalciferol (Vitamin D3) 5,000 units PO DAILY [facility] Last Admin: 11/18/16 08:26 Dose: 5,000 units Clindamycin Phosphate (Cleocin) Confirm Administered Dose 900 mg .ROUTE .STK- MED ONE Stop: 11/17/16 09:42 Last Admin: 11/17/16 12:07 Dose: 900 mg Clindamycin Phosphate (Cleocin) Confirm Administered Dose 900 mg .ROUTE .STK- MED ONE Stop: 11/17/16 11:08 Morphine Sulfate 8 mg/Epinephrine HCl 0.3 mg/Ketorolac Tromethamine 30 mg/ Sodium Chloride 27.9 ml 0 mg .XX ONETIME ONE Stop: 11/17/16 09:01 Last Admin: 11/17/16 20:23 Dose: Not Given Diltiazem HCl (Cardizem Cd) 300 mg PO DAILY [facility] Last Admin: 11/18/16 08:26 Dose: 300 mg Diphenhydramine HCl (Benadryl) 25 mg IVPUSH Q6H PRN PRN Reason: Pruritis Stop: 11/17/16 18:00 Docusate Sodium (Colace) 100 mg PO BID [facility] Last Admin: 11/18/16 08:26 Dose: 100 mg Enoxaparin Sodium (Lovenox) 30 mg SUBCUT BEDTIME [facility] Enoxaparin Sodium (Lovenox) 100 mg SUBCUT Q12HR [facility] Last Admin: 11/18/16 07:43 Dose: Not Given Enoxaparin Sodium (Lovenox) 100 mg SUBCUT ONETIME ONE Stop: 11/17/16 23:01 Last Admin: 11/17/16 23:23 Dose: 100 mg Ephedrine Sulfate (Ephedrine Sulfate) Confirm Administered Dose 50 mg .ROUTE .STK-MED ONE Stop: 11/17/16 10:07 Famotidine (Pepcid) 20 mg PO Q12H [facility] Last Admin: 11/17/16 22:36 Dose: 20 mg Famotidine (Pepcid) 20 mg PO DAILY [facility] Last Admin: 11/18/16 08:27 Dose: 20 mg Fentanyl (Sublimaze) Confirm Administered Dose 100 mcg .ROUTE .STK-MED ONE Stop: 11/17/16 08:27 Folic Acid (Folic Acid) 0.5 mg PO DAILY [facility] Last Admin: 11/18/16 08:25 Dose: 0.5 mg Furosemide (Lasix) 40 mg PO BID [facility] Last Admin: 11/18/16 08:26 Dose: 40 mg Furosemide (Lasix) 20 mg PO WITHLUNCH [facility] Last Admin: 11/18/16 12:18 Dose: 20 mg Glipizide (Glucotrol) 5 mg PO BID [facility] Last Admin: 11/18/16 08:27 Dose: 5 mg Hydralazine HCl (Apresoline) 20 mg IVPUSH Q4H PRN PRN Reason: Hypertension Lactated Ringer's (Ringers, Lactated) 1,000 mls @ 125 mls/hr IV ASDIRECTED [facility] Stop: 11/17/16 23:00 Lidocaine HCl (Xylocaine-Mpf 1%) Confirm Administered Dose 4 mls @ as directed .ROUTE .STK-MED ONE Stop: 11/17/16 08:27 Clindamycin Phosphate 600 mg/ (Sodium Chloride) 104 mls @ 208 mls/hr IV Q6H [facility] Stop: 11/18/16 11:29 Last Admin: 11/18/16 12:19 Dose: 208 mls/hr Lactated Ringer's (Ringers, Lactated) Confirm Administered Dose 1,000 mls @ as directed .ROUTE .STK-MED ONE Stop: 11/17/16 12:23 Sodium Chloride (Normal Saline) 250 mls @ 999 mls/hr IV .BOLUS ONE Stop: 11/17/16 19:39 Last Admin: 11/17/16 22:31 Dose: 999 mls/hr Insulin Aspart (Novolog) 0 unit SUBCUT QIDACANDBED [facility] PRN Reason: Protocol Last Admin: 11/18/16 12:18 Dose: 1 unit Iodine (Iodine 2% Mild Tincture) Confirm Administered Dose 30 ml .ROUTE .STK- MED ONE Stop: 11/17/16 09:34 Last Admin: 11/17/16 12:03 Dose: 18 ml Ketamine HCl (Ketalar) Confirm Administered Dose 500 mg .ROUTE .STK-MED ONE Stop: 11/17/16 12:02 Levothyroxine Sodium (Synthroid) 88 mcg PO DAILY [facility] Last Admin: 11/18/16 08:26 Dose: 88 mcg Lidocaine/Sodium Bicarbonate (Buffered Lidocaine 1% In Ns 8.4%) 0.25 ml .XX ONETIME PRN PRN Reason: Prior to IV Start Stop: 11/17/16 18:00 Lisinopril (Prinivil) 40 mg PO DAILY [facility] Last Admin: 11/18/16 08:26 Dose: 20 mg Magnesium Hydroxide (Milk Of Magnesia) 30 ml PO BID PRN PRN Reason: Constipation Magnesium Sulfate (Pharmacy To Dose - Magnesium Replacement) 0 dose .XX ASDIRECTED PRN PRN Reason: RX TO WATCH MAG LEVELS Metoprolol Succinate (Toprol Xl) 200 mg PO DAILY [facility] Last Admin: 11/18/16 08:27 Dose: 100 mg Metoprolol Tartrate (Lopressor) 5 mg IVPUSH Q4H PRN PRN Reason: Tachycardia Midazolam HCl (Versed 1 Mg/Ml) Confirm Administered Dose 2 mg .ROUTE .STK-MED ONE Stop: 11/17/16 10:03 Morphine Sulfate (Morphine) 2 mg IVPUSH Q2H PRN PRN Reason: Breakthrough Pain Morphine Sulfate (Duramorph Pf) Confirm Administered Dose 10 mg .ROUTE .STK-MED ONE Stop: 11/17/16 10:58 Multivitamins (Thera) 1 each PO WITHBREAKFAST [facility] Last Admin: 11/18/16 06:37 Dose: 1 each Naloxone HCl (Narcan) 0.1 mg IVPUSH Q5M PRN PRN Reason: Oversedation Ondansetron HCl (Zofran) 4 mg IVPUSH Q6H PRN PRN Reason: Nausea/Vomiting Ondansetron HCl (Zofran) 4 mg IVPUSH ONETIME PRN PRN Reason: Nausea/Vomiting Stop: 11/17/16 18:00 Oxycodone/Acetaminophen (Percocet 325-5 Mg) 1 - 2 tab PO Q4H PRN PRN Reason: Pain Last Admin: 11/18/16 15:26 Dose: 2 tab Acetaminophen (Arthritis Er 650 Mg) 0 each PO DAILY PRN PRN Reason: Pain Linagliptin [ (Tradjenta] 5 Mg)) 0 each PO BEDTIME [facility] Last Admin: 11/18/16 07:41 Dose: Not Given Phenylephrine HCl (Keyur-Synephrine) Confirm Administered Dose 10 mg .ROUTE .STK- MED ONE Stop: 11/17/16 10:07 Pneumococcal 13-Valent Conj Vacc (Prevnar 13) 0.5 ml IM .ONCE ONE Stop: 11/18/16 09:26 Potassium Chloride (Pharmacy To Dose - Potassium Replacement) 0 dose .XX ASDIRECTED PRN PRN Reason: RX TO WATCH K LEVELS Pramipexole Dihydrochloride (Mirapex) 0.25 mg PO BEDTIME [facility] Last Admin: 11/17/16 22:36 Dose: 0.25 mg Propofol (Diprivan 20 Ml) Confirm Administered Dose 200 mg .ROUTE .STK-MED ONE Stop: 11/17/16 08:27 Propofol (Diprivan 20 Ml) Confirm Administered Dose 200 mg .ROUTE .STK-MED ONE Stop: 11/17/16 12:03 Senna (Senna) 8.6 mg PO BID PRN PRN Reason: Constipation Simvastatin (Zocor) 10 mg PO BEDTIME [facility] Last Admin: 11/17/16 22:36 Dose: 10 mg Sodium Chloride (Saline Flush) 10 ml FLUSH ASDIRECTED PRN PRN Reason: Keep Vein Open Stop: 11/17/16 18:00 Tranexamic Acid (Cyklokapron) Confirm Administered Dose 1,000 mg .ROUTE .STK- MED ONE Stop: 11/17/16 09:34 Last Admin: 11/17/16 12:21 Dose: 1,000 mg Triamcinolone Acetonide (Kenalog-40) Confirm Administered Dose 80 mg .ROUTE .STK -MED ONE Stop: 11/17/16 09:34 Last Admin: 11/17/16 12:48 Dose: 80 mg Vancomycin HCl (Vancomycin) Confirm Administered Dose 1 gm .ROUTE .STK-MED ONE Stop: 11/17/16 09:34 Last Admin: 11/17/16 12:17 Dose: 1 gm Warfarin Sodium (Pharmacy To Dose - Warfarin) 0 dose .XX ASDIRECTED PRN PRN Reason: RX TO DOSE COUMADIN Warfarin Sodium (Coumadin) 5 mg PO DAILY@1800 [facility] Stop: 11/17/16 21:00 Last Admin: 11/17/16 17:05 Dose: 5 mg Warfarin Sodium (Coumadin) 5 mg PO DAILY [facility] Warfarin Sodium (Pharmacy To Dose - Warfarin) 1 dose .XX ASDIRECTED [facility] Warfarin Sodium (Coumadin) 7.5 mg PO DAILY@1800 [facility] Stop: 11/18/16 21:00 *Q Meaningful Use (DIS) - VTE *Q VTE Criteria *Q: - Stroke *Q Stroke Criteria *Q: - AMI *Q AMI Criteria *Q:
--- NOTE | 2016-11-25 13:29 | PCM.OPNOTE ---
- General Post-Op/Procedure Note Date of Surgery/Procedure: 11/17/16 Operative Procedure(s): right total knee arthroplasty with left knee corticosteroid injection Pre Op Diagnosis: bilateral knee osteoarthrosis Post-Op Diagnosis: Same Anesthesia Technique: Local, MAC, Spinal Primary Surgeon: Abdoulaye Mukehrjee Anesthesia Provider: Nathaly Fong Bag Loader Machine Operator: Marley Syed Bag Loader Machine Operator: Keara Bocanegra EBL in mLs: 200 Complications: None Condition: Good
--- NOTE | 2016-11-25 14:24 | OR ---
DATE OF OPERATION: 11/17/2016 SURGEON: Abdoulaye Mukherjee MD OPERATION PERFORMED: 1. Right total knee arthroplasty. 2. Left knee corticosteroid injection. PREOPERATIVE DIAGNOSIS: Bilateral knee osteoarthrosis. POSTOPERATIVE DIAGNOSIS: Bilateral knee osteoarthrosis. ANESTHESIA: Local MAC with spinal. ANESTHESIA PROVIDER: Nathaly Dorantes. ASSISTANTS: Marley Syed PA-C and Keara Bocanegra LPN. ESTIMATED BLOOD LOSS: 200 mL. COMPLICATIONS: None. CONDITION: Stable. DESCRIPTION OF PROCEDURE: The patient was identified in the preop holding area. Proper site was marked and identified by the surgeon. The patient was taken back to the operating theater where after adequate anesthesia, the patient's right lower extremity had a nonsterile tourniquet applied and was then sterilely prepped and draped in the usual sterile fashion. OR time-out was performed. The patient received 2 g IV Ancef. Right lower extremity was then exsanguinated. Tourniquet was insufflated to 250 mmHg. At this time, standard medial parapatellar incision was made in the skin and a medial parapatellar arthrotomy was created. Deep fibers of the MCL were raised and anterior fat pad was resected. Attention was turned to the patella. Patella measured a 24 and was resected to a 14 for a 29 x 9 mm patella. Drill holes were then drilled and found to be in adequate position. Attention was turned to the femur. The medial and lateral retractors were then placed and a drill hole was placed an intramedullary into the distal femur. The distal femoral intramedullary cutting guide was then placed. An 8 mm resected off the distal femur. It was found to have be an adequate resection. At this time, a sizing guide was placed. It was found to be a size 3 femur. Epicondylar access holes were then drilled using [place] line and epicondyles as reference. A 4:1 cutting block was then placed and anterior and posterior chamfer cuts were then completed and found to be an adequate resection. The box cut was then completed for a size 3 and proper positioning. At this time, posterior, medial, and lateral retractors were placed around the tibia. The tibial extra medullary cutting guide was then placed and aligned with the 2nd ray. A slope was set for roughly 0-3 degrees posterior slope. At this time, 9 mm was resected off the less affected lateral side and the resection was carried out. It was found to be an adequate resection. At this time, the patient was found to have good bone quality, so it was decided that we would do a press-fit knee at this time. Trial components were placed. A 9 mm trial spacer was placed. The patient had full knee flexion and extension, and it was found to be aligned with a 2nd ray and good stability to varus and valgus stress. The patient had full extension. At this time, trial implants were removed. Drill holes were placed in the distal femur for the press-fit femur as well as it was stamped and drilled on the tibia for the pegs and fins for the press-fit tibia. At this time, the size 3 Robyn press-fit tibia was then impacted into place and was found to have adequate fixation. The size 3 PS femur was then impacted into place for press-fit technique as well. A 9 mm X3 PS polyethylene was then placed. The patient's knee was brought to full extension, had full extension, and the patellar component was then press-fit into place. A 1 L dilute Betadine solution was then irrigated through the knee along with 3 L pulse lavage irrigation. The Ancef and periarticular injection were then completed as well. The patient's knee was brought through a range of motion and found to be stable throughout range of motion. A #2 barbed suture was used for closure of the medial parapatellar arthrotomy, 2-0 Vicryl was used subcutaneously, and before this a 1 g of vancomycin powder was placed along with topical tranexamic acid. A 2-0 Vicryl was used for the skin and a running Monocryl was used for the skin as well, as well as Prineo. The patient then had a sterile soft dressing applied and was sent to PACU in stable condition. MMROSALINDA /[id number]
--- NOTE | 2016-11-25 15:52 | OR ---
DATE OF OPERATION: 11/17/2016 SURGEON: Abdoulaye Mukherjee MD ADDENDUM: The patient also received an intra-articular injection to the left knee after the procedure was completed under sterile technique 2 mL 40 mg Kenalog, 4 mL of 0.25% Marcaine were injected to the left knee. The patient tolerated that as well. MMODAL /[id number]
== END 2016-11-18 16:21 | disposition home or self-care (01) | DRG 470 ==
LOC: JD.MS 08:22
PROVIDERS: ADMIT Orthopaedic Surgery; ATTEND Orthopaedic Surgery
PROC: 0SRC0JA Replacement of Right Knee Joint with Synthetic Substitute, Uncemented, Open Approach (ICD-10-PCS; principal; 2016-11-17)
PROC: 3E0U33Z Introduction of Anti-inflammatory into Joints, Percutaneous Approach (ICD-10-PCS; 2016-11-17)
PROC: 3E0U3BZ Introduction of Anesthetic Agent into Joints, Percutaneous Approach (ICD-10-PCS; 2016-11-17)
DX: M17.0 Bilateral primary osteoarthritis of knee (principal); Z68.42 Body mass index [BMI] 45.0-49.9, adult; I95.81 Postprocedural hypotension; I48.2 Chronic atrial fibrillation; E11.22 Type 2 diabetes mellitus with diabetic chronic kidney disease; I12.9 Hypertensive chronic kidney disease with stage 1 through stage 4 chronic kidney disease, or unspecified chronic kidney disease; N18.3 Chronic kidney disease, stage 3 (moderate); E03.9 Hypothyroidism, unspecified; D64.9 Anemia, unspecified; E66.9 Obesity, unspecified; G47.33 Obstructive sleep apnea (adult) (pediatric); Z95.0 Presence of cardiac pacemaker; Z79.82 Long term (current) use of aspirin; Z79.01 Long term (current) use of anticoagulants; Z79.84 Long term (current) use of oral hypoglycemic drugs; Z79.899 Other long term (current) drug therapy
CPT/HCPCS: 01402; 36415; 73560-26-RT; 73560-RT; 80048; 80053; 82962; 85025; 85610; 85730; 87641; 94762; 97110-GP; 97116-GP; 97161-GP; 97165-GO; 97535-GO; A9270-GY; C1776; J0171; J0690; J1650; J1815-GY; J1885; J2250; J2270; J2370; J2704; J3010; J3301; J3370; J3490; J7030; J7040; J7120

== ENCOUNTER 2017-05-16 16:17 | Emergency (ER) | payer MEDICARE, BC ==
[2017-05-16] MEDS ORDERED: Sodium Chloride 0.9% 10 ML Syringe FLUSH PRN (16:48)
[2017-05-16] MEDS ORDERED: Diltiazem 25 MG/5 ML SDV ONE (16:53)
[2017-05-16] MEDS: Diltiazem 25 MG/5 ML SDV IVPUSH ONE ×2 (17:01→17:09)
--- NOTE | 2017-05-16 18:27 | EDM.PDOC ---
ED HPI GENERAL MEDICAL PROBLEM - General Chief Complaint: Cardiovascular Problem Stated Complaint: ATRIAL FIB W/PACEMAKER Time Seen by Provider: 05/16/17 16:26 Source of Information: Reports: Patient, RN Notes Reviewed - History of Present Illness INITIAL COMMENTS - FREE TEXT/NARRATIVE: 76-year-old lady presents to the ED this late afternoon after onset of palpitations this past morning. She does have history of atrial fibrillation. She was last in atrial fibrillation about 7 years ago to the best of her knowledge. She is on diltiazem and long-acting metoprolol and that has been working quite well for her. She is having no chest pain or difficulty breathing. The palpitations and irregularity type feeling continues this afternoon triggering her visit to the ED at this time. She has been on Coumadin this whole time and continues to take that as previously prescribed. She states that "my kidneys are weak, stage 3". She is diabetic. She is not been any more short of breath than usual. No recent cough fever or chills. No recent nausea vomiting or diarrhea. Chest Pain Score (Numeric/FACES): 1 - Related Data Allergies Allergy/AdvReac Type Severity Reaction Status Date / Time Penicillins Allergy Severe Anaphylactic Verified 05/16/17 17:18 Shock estrogens, conjugated Allergy hives/rash Verified 05/16/17 17:18 [From Premarin] Home Meds: Home Meds Acetaminophen [Tylenol Arthritis Pain] 650 mg PO DAILY PRN 04/13/15 [History] Allopurinol [Zyloprim] 200 mg PO DAILY 04/13/15 [History] Diltiazem HCl [Cardizem Cd] 300 mg PO DAILY 04/13/15 [History] Lisinopril 40 mg PO DAILY 04/13/15 [History] Metoprolol Succinate [Toprol XL] 200 mg PO DAILY 04/13/15 [History] Simvastatin [Zocor] 10 mg PO BEDTIME 04/13/15 [History] Aspirin [Low Dose Aspirin EC] 81 mg PO QPM 04/16/15 [History] Warfarin [Coumadin] 5 mg PO DAILY 04/16/15 [History] Calcium Carbonate [Tums] 500 mg PO DAILY PRN 10/10/16 [History] Folic Acid 400 mcg PO DAILY 10/10/16 [History] Furosemide 40 mg PO DAILY 10/10/16 [History] Levothyroxine Sodium 88 mg PO DAILY 10/10/16 [History] Linagliptin [Tradjenta] 5 mg PO BEDTIME 10/10/16 [History] Pramipexole Di-HCl [Mirapex] 0.25 mg PO BEDTIME 10/10/16 [History] glipiZIDE [Glipizide] 5 mg PO BID 10/10/16 [History] Cholecalciferol (Vitamin D3) [Vitamin D3] 5,000 unit PO DAILY 11/14/16 [History] Furosemide 20 mg PO WITHLUNCH 11/17/16 [History] Docusate Sodium [Colace] 100 mg PO BID PRN 05/16/17 [History] Past Medical History HEENT History: Reports: Impaired Vision Other HEENT History: has dentures and glasses Cardiovascular History: Reports: Afib, High Cholesterol, Hypertension, Pacemaker Other Cardiovascular History: new pacemaker battery May 2015 Respiratory History: Reports: Sleep Apnea Other Respiratory History: uses cpap at hs Gastrointestinal History: Reports: GERD Genitourinary History: Reports: Other (See Below) Other Genitourinary History: CKD 3 SUSTAINABILITY COMMUNICATOR History: Reports: Other (See Below) Other OB/BYN History: removal of ovarian cyst Musculoskeletal History: Reports: Gout, Osteoarthritis Other Musculoskeletal History: restless elg syndrome, muscle weakness Neurological History: Reports: None Psychiatric History: Reports: None Endocrine/Metabolic History: Reports: Diabetes, Type II, Hypothyroidism, Obesity /BMI 30+ Hematologic History: Reports: Anemia Immunologic History: Reports: None Oncologic (Cancer) History: Reports: None Dermatologic History: Reports: None - Infectious Disease History Infectious Disease History: Reports: None - Past Surgical History Head Surgeries/Procedures: Reports: None HEENT Surgical History: Reports: Cataract Surgery Cardiovascular Surgical History: Reports: Pacer Respiratory Surgical History: Reports: None GI Surgical History: Reports: Other (See Below) Other GI Surgeries/Procedures: exploratory laparotomy Female Surgical History: Reports: D&C, Hysterectomy Endocrine Surgical History: Reports: None Neurological Surgical History: Reports: Lumbar Spine Other Neurological Surgeries/Procedures: lumbar disc displacement Musculoskeletal Surgical History: Reports: Hip Replacement Other Musculoskeletal Surgeries/Procedures:: arthrocentesis right knee and left knee, rotator cuff repair of shoulder Oncologic Surgical History: Reports: None Dermatological Surgical History: Reports: None Social & Family History - Tobacco Use Smoking Status *Q: Former Smoker Used Tobacco, but Quit: Yes Month Tobacco Last Used: 50 yrs ago - Caffeine Use Caffeine Use: Reports: Coffee Other Caffeine Use: decaff - Recreational Drug Use Recreational Drug Use: No ED ROS GENERAL - Review of Systems Review Of Systems: See Below Constitutional: Denies: Fever, Chills, Diaphoresis HEENT: Reports: No Symptoms Respiratory: Denies: Shortness of Breath, Pleuritic Chest Pain Cardiovascular: Denies: Chest Pain GI/Abdominal: Denies: Abdominal Pain, Nausea, Vomiting Musculoskeletal: Denies: Neck Pain, Shoulder Pain, Leg Pain Skin: Reports: No Symptoms Neurological: Denies: Dizziness, Numbness, Tingling, Trouble Speaking, Weakness ED EXAM, GENERAL - Physical Exam Exam: See Below General Appearance: Alert, No Apparent Distress Eye Exam: Bilateral Eye: PERRL Throat/Mouth: Normal Inspection, Normal Oropharynx Head: Atraumatic. No: Facial Swelling Neck: Supple, Full Range of Motion Respiratory/Chest: No Respiratory Distress, Lungs Clear, Normal Breath Sounds Cardiovascular: Irregularly Irregular GI/Abdominal: Soft Back Exam: Normal Inspection. No: CVA Tenderness (L), CVA Tenderness (R) Extremities: Normal Inspection, Normal Range of Motion. No: Pedal Edema, Leg Pain, Increased Warmth, Redness Neurological: Alert, Oriented, No Motor/Sensory Deficits Skin Exam: Warm, Dry, Normal Color EKG INTERPRETATION EKG Date: 05/16/17 Rhythm: A-Fib Rate (Beats/Min): 124 [place]: Normal QRS: Normal ST-T: Other (mild t wave flattening III and AVF) Course - Vital Signs Last Recorded V/S: Last Vital Signs Temp 97.0 F 05/16/17 16:25 Pulse 119 H 05/16/17 18:57 Resp 34 H 05/16/17 16:25 BP 101/77 05/16/17 19:45 Pulse Ox 96 05/16/17 16:25 - Orders/Labs/Meds Orders: Active Orders 24 hr Category Date Time Status EKG 12 Lead [EKG Documentation Completion] [RC] STAT Care 05/16/17 16:47 Active Peripheral IV Care [RC] . DIRECTED Care 05/16/17 16:48 Active Peripheral IV Insertion Pediatric [OM.PC] Routine Oth 05/16/17 16:48 Ordered Labs: Laboratory Tests 02/05/16/17 05/16/17 Range/Units 16:52 16:52 16:52 WBC 7.87 (3.98-10.04) K/mm3 RBC 3.73 L (3.98-5.22) M/mm3 Hgb 11.0 L (11.2-15.7) gm/L Hct 34.5 (34.1-44.9) % MCV 92.5 (79.4-94.8) fl MCH 29.5 (25.6-32.2) pg MCHC 31.9 L (32.2-35.5) g/dl RDW Std Deviation 50.2 H (36.4-46.3) fL Plt Count 176 L (182-369) K/mm3 MPV 10.1 (9.4-12.3) fl Neut % (Auto) 74.5 H (34.0-71.1) % Lymph % (Auto) 16.3 L (19.3-51.7) % [place] % (Auto) 6.1 (4.7-12.5) % Eos % (Auto) 2.5 (0.7-5.8) Baso % (Auto) 0.3 (0.1-1.2) % Neut # (Auto) 5.87 (1.56-6.13) K/mm3 Lymph # (Auto) 1.28 (1.18-3.74) K/mm3 [place] # (Auto) 0.48 H (0.24-0.36) K/mm3 Eos # (Auto) 0.20 (0.04-0.36) K/mm3 Baso # (Auto) 0.02 (0.01-0.08) K/mm3 PT 30.2 H (8.0-13.0) SECONDS INR 2.79 Sodium 143 (136-145) mEq/L Potassium 4.4 (3.5-5.1) mEq/L Chloride 105 (98-107) mEq/L Carbon Dioxide 24 (21-32) mEq/L Anion Gap 18.4 H (5-15) BUN 52 H (7-18) mg/dL Creatinine 1.9 H (0.55-1.02) mg/dL Est Cr Clr Drug Dosing 19.60 mL/min Estimated GFR (MDRD) 26 (>60) mL/min BUN/Creatinine Ratio 27.4 H (14-18) Glucose 168 H (83-115) mg/dL Calcium 8.9 (8.5-10.1) mg/dL Total Bilirubin 0.2 (0.2-1.0) mg/dL AST 16 (15-37) U/L ALT 20 (14-59) U/L Alkaline Phosphatase 75 (46-116) U/L Total Protein 6.7 (6.4-8.2) g/dl Albumin 3.3 L (3.4-5.0) g/dl Globulin 3.4 gm/dL Albumin/Globulin Ratio 1.0 (1-2) Meds: Medications Discontinued Medications Generic Name Dose Route Start Last Admin Trade Name Freq PRN Reason Stop Dose Admin Diltiazem HCl Confirm 05/16/17 16:53 05/16/17 17:00 Diltiazem Administered 05/16/17 16:54 Not Given Dose 25 mg .ROUTE .STK-MED ONE Diltiazem HCl 10 mg 05/16/17 16:48 05/16/17 17:09 Diltiazem IVPUSH 05/16/17 16:49 5 mg ONETIME ONE Administration Diltiazem HCl 10 mg 05/16/17 18:36 05/16/17 19:21 Diltiazem IVPUSH 05/16/17 18:37 5 mg ONETIME ONE Administration Diltiazem HCl 120 mg 05/16/17 18:38 05/16/17 18:57 Cardizem Cd PO 05/16/17 18:39 120 mg ONETIME ONE Administration Sodium Chloride 500 mls @ 999 mls/hr 05/16/17 18:35 05/16/17 18:53 Normal Saline IV 05/16/17 19:05 999 mls/hr .BOLUS ONE Administration Sodium Chloride 10 ml 05/16/17 16:48 05/16/17 17:00 Saline Flush FLUSH 10 ml ASDIRECTED PRN Administration Keep Vein Open - Re-Assessments/Exams Free Text/Narrative Re-Assessment/Exam: 05/17/17 15:02 Patient already on oral metropolol and diltiazam in addition to other meds. She presented in A fib as documented initial rate in the upper one teens to mid 120's. No chest pain or other apparent distress. We did give 5 mg diltiazam followed by 2nd 5 and that did bring her rate down to the 105 to 115 range. We did give another 5 mg IV about an hour later when rate started going back up into the 120's. This was than followed by 120 mg cardizam CD one time only oral prior to discharge. With consideration of her rate in the 120's on arrival to ED I did send a new prescription to [facility] for a quantity of 10 cardizam 360 replacing her current 300 mg dosage. Discharge instr. as documented. Follow up clinic in 2 to 3 days. Departure - Departure Time of Disposition: 19:49 Disposition: Home, Self-Care 01 Condition: Fair Clinical Impression: Atrial fibrillation Qualifiers: Atrial fibrillation type: chronic Qualified Code(s): I48.2 - Chronic atrial fibrillation Instructions: Atrial Fibrillation, [id number] Referrals: Alix Bowden MINGLER OPERATOR [Primary Care Provider] - Forms: ED Department Discharge Additional Instructions: Prescription has been called up to any pharmacy for diltiazem 360 mg strength to take once daily in place of the 300 mg dosage that you are currently taking. Take the 360 mg dosage starting tomorrow and continue at that dosage until further directed. Try see Tiffanie Gilliam at the clinic Thursday or Thursday for follow -up, call Thursday morning for appointment. Return to ED as needed if symptoms worsening in any way. - My Orders Last 24 Hours: My Active Orders 05/16/17 16:47 EKG 12 Lead [EKG Documentation Completion] [RC] STAT 05/16/17 16:48 Peripheral IV Care [RC] . DIRECTED Peripheral IV Insertion Pediatric [OM.PC] Routine - Assessment/Plan Last 24 Hours: My Active Orders 05/16/17 16:47 EKG 12 Lead [EKG Documentation Completion] [RC] STAT 05/16/17 16:48 Peripheral IV Care [RC] . DIRECTED Peripheral IV Insertion Pediatric [OM.PC] Routine
[2017-05-16] MEDS ORDERED: Sodium Chloride 0.9% 500 ML IV ONE (18:35)
[2017-05-16] MEDS ORDERED: Diltiazem 25 MG/5 ML SDV IVPUSH ONE (18:36)
[2017-05-16] MEDS ORDERED: Diltiazem 120 MG Cap.CD PO ONE (18:38)
[2017-05-16 19:57] VITALS: BP 101/77
--- NOTE | 2017-05-17 11:53 | CR ---
Chest: Portable view of the chest was obtained. Comparison: Prior chest x-ray of 09/29/16. Heart size is accentuated from portable technique. Upper mediastinum is normal. Pacemaker is present. Lungs are clear. Bony structures are grossly intact. Impression: 1. Nothing acute is seen on portable chest x-ray. Diagnostic code #2
== END 2017-05-16 20:02 | disposition home or self-care (01) ==
LOC: JD.ED 16:17
DX: I48.2 Chronic atrial fibrillation (principal); I12.9 Hypertensive chronic kidney disease with stage 1 through stage 4 chronic kidney disease, or unspecified chronic kidney disease; E11.22 Type 2 diabetes mellitus with diabetic chronic kidney disease; N18.3 Chronic kidney disease, stage 3 (moderate); E03.9 Hypothyroidism, unspecified; E78.00 Pure hypercholesterolemia, unspecified; I10 Essential (primary) hypertension; Z79.899 Other long term (current) drug therapy; Z79.01 Long term (current) use of anticoagulants; Z79.84 Long term (current) use of oral hypoglycemic drugs; Z88.0 Allergy status to penicillin; Z88.8 Allergy status to other drugs, medicaments and biological substances
CPT/HCPCS: 36415; 71045; 80053; 85025; 85610; 93005; 96361; 96374; 96376; 99285; A9270; J3490; J7040; J7050; 93010; 99284-25

== ENCOUNTER 2017-07-20 20:55 | Emergency (ER) | payer MEDICARE, BC ==
[2017-07-20 21:06] VITALS: BP 156/71
[2017-07-20] MEDS ORDERED: Sodium Chloride 0.9% 10 ML Syringe FLUSH PRN (21:21)
[2017-07-20] MEDS ORDERED: Diphtheria,Pertussis(Acell),Tetanus Vaccine 0.5 ML SDV IM ONE (21:21)
[2017-07-20] MEDS ORDERED: HYDROmorphone 0.5 MG/0.5 ML SYRINGE IVPUSH ONE (21:21)
[2017-07-20] MEDS ORDERED: Doxycycline 100 MG Cap PO ONE (22:12)
[2017-07-20] MEDS ORDERED: Lidocaine 1% 10 ML MDV INJECT ONE (22:36)
--- NOTE | 2017-07-20 23:39 | EDM.PDOC ---
ED HPI GENERAL MEDICAL PROBLEM - General Chief Complaint: Laceration Stated Complaint: HAND INJURY Time Seen by Provider: 07/20/17 21:11 Source of Information: Reports: Patient, RN Notes Reviewed - History of Present Illness INITIAL COMMENTS - FREE TEXT/NARRATIVE: 77-year-old lady wiped out ring in the garbage dumpster out to the street this evening. She states she tripped, fell forward injuring middle and ring fingers of her right hand quite severely. He scraped those fingers hard on the sidewalk or pavement that she fell onto. She has resultant deep laceration abrasion injury of the distal dorsal aspect of both fingers. No other pain or injury to the hand. She does have chronic arthritis and chronic swelling of the PIP joints of the index and middle fingers. She has a slight abrasion of the dorsal distal small finger. She has difficulty extending distal ring finger at the DIP joint. She states her last tetanus immunization would have been a long time ago. No injury to her head neck or face. No chest pain or difficulty breathing. Right Hand Pain Score (Numeric/FACES): 6 - Related Data Allergies Allergy/AdvReac Type Severity Reaction Status Date / Time Penicillins Allergy Severe Anaphylactic Verified 07/20/17 21:06 Shock estrogens, conjugated Allergy hives/rash Verified 07/20/17 21:06 [From Premarin] Home Meds: Home Meds Acetaminophen [Tylenol Arthritis Pain] 650 mg PO DAILY PRN 04/13/15 [History] Allopurinol [Zyloprim] 200 mg PO DAILY 04/13/15 [History] Diltiazem HCl [Cardizem Cd] 300 mg PO DAILY 04/13/15 [History] Lisinopril 40 mg PO DAILY 04/13/15 [History] Metoprolol Succinate [Toprol XL] 200 mg PO DAILY 04/13/15 [History] Simvastatin [Zocor] 10 mg PO BEDTIME 04/13/15 [History] Aspirin [Low Dose Aspirin EC] 81 mg PO QPM 04/16/15 [History] Warfarin [Coumadin] 5 mg PO DAILY 04/16/15 [History] Calcium Carbonate [Tums] 500 mg PO DAILY PRN 10/10/16 [History] Folic Acid 400 mcg PO DAILY 10/10/16 [History] Furosemide 40 mg PO DAILY 10/10/16 [History] Levothyroxine Sodium 88 mg PO DAILY 10/10/16 [History] Linagliptin [Tradjenta] 5 mg PO BEDTIME 10/10/16 [History] Pramipexole Di-HCl [Mirapex] 0.25 mg PO BEDTIME 10/10/16 [History] glipiZIDE [Glipizide] 5 mg PO BID 10/10/16 [History] Cholecalciferol (Vitamin D3) [Vitamin D3] 5,000 unit PO DAILY 11/14/16 [History] Furosemide 20 mg PO WITHLUNCH 11/17/16 [History] Docusate Sodium [Colace] 100 mg PO BID PRN 05/16/17 [History] Doxycycline [Vibramycin] 100 mg PO BID #14 cap 07/20/17 [Rx] Past Medical History HEENT History: Reports: Impaired Vision Other HEENT History: has dentures and glasses Cardiovascular History: Reports: Afib, High Cholesterol, Hypertension, Pacemaker Other Cardiovascular History: new pacemaker battery May 2015 Respiratory History: Reports: Sleep Apnea Other Respiratory History: uses cpap at hs Gastrointestinal History: Reports: GERD Genitourinary History: Reports: Other (See Below) Other Genitourinary History: CKD 3 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: Other (See Below) Other OB/BYN History: removal of ovarian cyst Musculoskeletal History: Reports: Gout, Osteoarthritis Other Musculoskeletal History: restless elg syndrome, muscle weakness Neurological History: Reports: None Psychiatric History: Reports: None Endocrine/Metabolic History: Reports: Diabetes, Type II, Hypothyroidism, Obesity /BMI 30+ Hematologic History: Reports: Anemia Immunologic History: Reports: None Oncologic (Cancer) History: Reports: None Dermatologic History: Reports: None - Infectious Disease History Infectious Disease History: Reports: None - Past Surgical History Head Surgeries/Procedures: Reports: None HEENT Surgical History: Reports: Cataract Surgery Cardiovascular Surgical History: Reports: Pacer Respiratory Surgical History: Reports: None GI Surgical History: Reports: Other (See Below) Other GI Surgeries/Procedures: exploratory laparotomy Female Surgical History: Reports: D&C, Hysterectomy Endocrine Surgical History: Reports: None Neurological Surgical History: Reports: Lumbar Spine Other Neurological Surgeries/Procedures: lumbar disc displacement Musculoskeletal Surgical History: Reports: Hip Replacement Other Musculoskeletal Surgeries/Procedures:: arthrocentesis right knee and left knee, rotator cuff repair of shoulder Oncologic Surgical History: Reports: None Dermatological Surgical History: Reports: None Social & Family History - Tobacco Use Smoking Status *Q: Former Smoker Used Tobacco, but Quit: Yes Month/Year Tobacco Last Used: 50 years ago - Caffeine Use Caffeine Use: Reports: None Other Caffeine Use: decaff - Recreational Drug Use Recreational Drug Use: No ED ROS GENERAL - Review of Systems Review Of Systems: See Below Constitutional: Reports: No Symptoms HEENT: Reports: No Symptoms Respiratory: Denies: Shortness of Breath Cardiovascular: Denies: Chest Pain GI/Abdominal: Denies: Abdominal Pain, Nausea, Vomiting Musculoskeletal: Reports: Joint Pain (Distal DIP joint areas of right ring and middle fingers), Other (Deep laceration abrasion injuries dorsal aspect distal ring and middle fingers right hand) Neurological: Reports: Weakness (Inability to extend distal ring finger at the DIP joint) ED EXAM, SKIN/RASH Exam: See Below General Appearance: Alert, No Apparent Distress Eye Exam: Bilateral Eye: PERRL Ears: Normal External Exam Nose: Normal Inspection Throat/Mouth: Normal Inspection Head: Atraumatic Neck: Supple, Full Range of Motion Respiratory/Chest: No Respiratory Distress, Lungs Clear, Normal Breath Sounds Cardiovascular: Regular Rate, Rhythm Extremities: Joint Swelling (There is mild swelling and tenderness of the distal middle and ring fingers right hand), Other (Large area of superficial abrasion injury dorsal aspect distal middle and ring fingers right hand with areas of deep laceration and abrasion central distal middle and ring fingers right hand) Neurological: Sensory/Motor Deficit (Patient is unable to extend ring finger at the DIP joint or to maintain extension) ED SKIN PROCEDURES - Laceration/Wound Repair Right Distal Finger Lac/Wound length In cm: 2 Appearance: Irregular Distal NVT: Neuro & Vascular Intact Anesthetic Type: Local Local Anesthesia - Lidocaine (Xylocaine): 1% Plain Skin Prep: Saline Suture Size: 3-0 # of Sutures: 4 Course - Vital Signs Last Recorded V/S: Last Vital Signs Temp 97.5 F 07/20/17 21:03 Pulse 88 07/20/17 21:03 Resp 18 07/20/17 21:03 BP 156/71 H 07/20/17 21:03 Pulse Ox 94 L 07/20/17 21:03 - Orders/Labs/Meds Orders: Active Orders 24 hr Category Date Time Status Peripheral IV Care [RC] . DIRECTED Care 07/20/17 21:23 Active Vaccines to be Administered [RC] PER UNIT ROUTINE Care 07/20/17 21:23 Active Hand Comp Min 3V Lt [CR] Stat Exams 07/20/17 21:23 Taken Peripheral IV Insertion Adult [OM.PC] Stat Oth 07/20/17 21:21 Ordered Meds: Medications Discontinued Medications Generic Name Dose Route Start Last Admin Trade Name Freq PRN Reason Stop Dose Admin Diphtheria/Tetanus/Acell Pertussis 0.5 ml 07/20/17 21:21 07/20/17 21:41 Adacel IM 07/20/17 21:22 0.5 ml .ONCE ONE Administration Doxycycline Hyclate 100 mg 07/20/17 22:12 07/20/17 22:23 Vibramycin PO 07/20/17 22:13 100 mg ONETIME ONE Administration Hydromorphone HCl 0.5 mg 07/20/17 21:21 07/20/17 21:40 Dilaudid IVPUSH 07/20/17 21:22 0.5 mg ONETIME ONE Administration Lidocaine HCl 10 ml 07/20/17 22:36 07/20/17 22:39 Xylocaine 1% INJECT 07/20/17 22:37 10 ml ONETIME ONE Administration Sodium Chloride 10 ml 07/20/17 21:21 07/20/17 21:42 Saline Flush FLUSH 10 ml ASDIRECTED PRN Administration Keep Vein Open - Re-Assessments/Exams Free Text/Narrative Re-Assessment/Exam: 07/21/17 00:41 Patient is on Coumadin. Did consider giving a dose of IV Ancef but did get a drug interaction warning with the Coumadin. Therefore I gave doxycycline 100 mg by mouth. Both fingers were soaked and irrigated. I did place 4 sutures to help close the dorsal laceration of the distal ring finger. There is nothing to suture of the dorsal middle finger. Sterile nonadhesive dressings were applied incorporating a volar aluminum splint on the ring finger. I did discuss hyperextension injury of the ring finger with Dr. Quintana, Hand Surgeon communication arts lecturer for [facility], [place], He will see her Morning, 2 days from now , discharge instr. as documented. Departure - Departure Time of Disposition: 23:34 Disposition: Home, Self-Care 01 Clinical Impression: Finger laceration involving tendon Qualifiers: Encounter type: initial encounter Qualified Code(s): S61.219A - Laceration without foreign body of unspecified finger without damage to nail, initial encounter - Discharge Information Prescriptions: Doxycycline [Vibramycin] 100 mg PO BID #14 cap Instructions: Laceration Care, Adult Referrals: Alix Bowden, NUCLEAR TECHNICIAN [Primary Care Provider] - Forms: ED Department Discharge Additional Instructions: Keep finger splint and tube gauze dressings dry and clean, you may leave them on until you see Dr. Quintana at [facility]. see Dr. Quintana, Orthopedist at around 8:30 central time, 7:30 Mountain time this coming , July 23. Keep hand elevated as much as possible. Keep hands dry and clean. Intermittent ice packs tomorrow to help get the swelling down. You may take occasional Tylenol if needed for discomfort. It would be best that you have nothing to eat or drink other than clear liquids prior to your clinic appointment. You may take your morning medications as usual. - My Orders Last 24 Hours: My Active Orders 07/20/17 21:21 Peripheral IV Insertion Adult [OM.PC] Stat 07/20/17 21:23 Peripheral IV Care [RC] . DIRECTED Vaccines to be Administered [RC] PER UNIT ROUTINE Hand Comp Min 3V Lt [CR] Stat - Assessment/Plan Last 24 Hours: My Active Orders 07/20/17 21:21 Peripheral IV Insertion Adult [OM.PC] Stat 07/20/17 21:23 Peripheral IV Care [RC] . DIRECTED Vaccines to be Administered [RC] PER UNIT ROUTINE Hand Comp Min 3V Lt [CR] Stat
--- NOTE | 2017-07-21 06:55 | CR ---
Left hand: Four views of the left hand were obtained. Comparison: No prior hand exam. Severe joint space narrowing with small erosions are seen within the MCP joints of the third digit. Cystic change is seen within the distal third metacarpal. Lesser cystic change is seen within the distal second metacarpal with additional joint space narrowing within the second MCP joint which is not as severe as the third finger. Bony density is noted off the PIP joint of the fifth digit which is compatible with old injury. Nothing acute is appreciated. Impression: 1. Severe degenerative change within the MCP joints of the third and second fingers. 2. Other incidental finding. 3. Nothing acute is appreciated. Diagnostic code #2
== END 2017-07-20 23:50 | disposition home or self-care (01) ==
LOC: JD.ED 20:55
DX: S61.214A Laceration without foreign body of right ring finger without damage to nail, initial encounter (principal); E78.00 Pure hypercholesterolemia, unspecified; I10 Essential (primary) hypertension; E11.9 Type 2 diabetes mellitus without complications; E03.9 Hypothyroidism, unspecified; Z88.0 Allergy status to penicillin; Z88.8 Allergy status to other drugs, medicaments and biological substances; Z79.899 Other long term (current) drug therapy; Z23 Encounter for immunization; Z79.82 Long term (current) use of aspirin; Z87.891 Personal history of nicotine dependence; W01.0XXA Fall on same level from slipping, tripping and stumbling without subsequent striking against object, initial encounter; Y92.488 Other paved roadways as the place of occurrence of the external cause
CPT/HCPCS: 12001; 73130; 90471; 90715; 96374; 99284; A9270; J1170; J7050; 12002; 99283-25

== ENCOUNTER 2018-09-03 09:00 | Emergency (ER) | payer MEDICARE, BC ==
[2018-09-03 09:11] VITALS: BP 158/78
--- NOTE | 2018-09-03 09:36 | EDM.PDOC ---
ED HPI GENERAL MEDICAL PROBLEM - General Chief Complaint: Laceration Stated Complaint: HAND LAC Time Seen by Provider: 09/03/18 09:11 Source of Information: Reports: Patient History Limitations: Reports: No Limitations - History of Present Illness INITIAL COMMENTS - FREE TEXT/NARRATIVE: The patient presents with a skin tear to her left hand. She hit her hand last night on her night stand. She is on coumadin and it was still bleeding this morning. She is unsure of her tetanus but she will check on that. Onset: Sudden Duration: Hour(s): (3am) Location: Reports: Upper Extremity, Left (hand) Quality: Reports: Sharp Severity: Mild Improves with: Reports: None Worsens with: Reports: None Associated Symptoms: Reports: No Other Symptoms - Related Data Allergies Allergy/AdvReac Type Severity Reaction Status Date / Time Penicillins Allergy Severe Anaphylactic Verified 09/03/18 09:06 Shock estrogens, conjugated Allergy hives/rash Verified 09/03/18 09:06 [From Premarin] Home Meds: Home Meds Acetaminophen [Tylenol Arthritis Pain] 650 mg PO DAILY PRN 04/13/15 [History] Allopurinol [Zyloprim] 200 mg PO DAILY 04/13/15 [History] Diltiazem HCl [Cardizem Cd] 300 mg PO DAILY 04/13/15 [History] Lisinopril 40 mg PO DAILY 04/13/15 [History] Metoprolol Succinate [Toprol XL] 200 mg PO DAILY 04/13/15 [History] Simvastatin [Zocor] 10 mg PO BEDTIME 04/13/15 [History] Aspirin [Low Dose Aspirin EC] 81 mg PO QPM 04/16/15 [History] Warfarin [Coumadin] 5 mg PO DAILY 04/16/15 [History] Calcium Carbonate [Tums] 500 mg PO DAILY PRN 10/10/16 [History] Folic Acid 400 mcg PO DAILY 10/10/16 [History] Furosemide 40 mg PO DAILY 10/10/16 [History] Levothyroxine Sodium 88 mg PO DAILY 10/10/16 [History] Linagliptin [Tradjenta] 5 mg PO BEDTIME 10/10/16 [History] Pramipexole Di-HCl [Mirapex] 0.25 mg PO BEDTIME 10/10/16 [History] glipiZIDE [Glipizide] 5 mg PO BID 10/10/16 [History] Cholecalciferol (Vitamin D3) [Vitamin D3] 5,000 unit PO DAILY 11/14/16 [History] Furosemide 20 mg PO WITHLUNCH 11/17/16 [History] Docusate Sodium [Colace] 100 mg PO BID PRN 05/16/17 [History] Doxycycline [Vibramycin] 100 mg PO BID #14 cap 07/20/17 [Rx] Past Medical History HEENT History: Reports: Impaired Vision Other HEENT History: has dentures and glasses Cardiovascular History: Reports: Afib, High Cholesterol, Hypertension, Pacemaker Other Cardiovascular History: new pacemaker battery May 2015 Respiratory History: Reports: Sleep Apnea Other Respiratory History: uses cpap at hs Gastrointestinal History: Reports: GERD Genitourinary History: Reports: Other (See Below) Other Genitourinary History: CKD 3 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: Other (See Below) Other PROGRAM CLINICIAN History: removal of ovarian cyst Musculoskeletal History: Reports: Gout, Osteoarthritis Other Musculoskeletal History: restless elg syndrome, muscle weakness, uses cane for ambulation Neurological History: Reports: None Psychiatric History: Reports: None Endocrine/Metabolic History: Reports: Diabetes, Type II, Hypothyroidism, Obesity /BMI 30+ Hematologic History: Reports: Anemia, Anticoagulation Therapy Immunologic History: Reports: None Oncologic (Cancer) History: Reports: None Dermatologic History: Reports: None - Infectious Disease History Infectious Disease History: Reports: None - Past Surgical History Head Surgeries/Procedures: Reports: None HEENT Surgical History: Reports: Cataract Surgery Cardiovascular Surgical History: Reports: Pacer Respiratory Surgical History: Reports: None GI Surgical History: Reports: Other (See Below) Other GI Surgeries/Procedures: exploratory laparotomy Female Surgical History: Reports: D&C, Hysterectomy Endocrine Surgical History: Reports: None Neurological Surgical History: Reports: Lumbar Spine Other Neurological Surgeries/Procedures: lumbar disc displacement Musculoskeletal Surgical History: Reports: Hip Replacement Other Musculoskeletal Surgeries/Procedures:: arthrocentesis right knee and left knee, rotator cuff repair of shoulder Oncologic Surgical History: Reports: None Dermatological Surgical History: Reports: None Social & Family History - Tobacco Use Smoking Status *Q: Never Smoker - Caffeine Use Caffeine Use: Reports: None Other Caffeine Use: decaff ED ROS GENERAL - Review of Systems Review Of Systems: See Below Constitutional: Reports: No Symptoms HEENT: Reports: No Symptoms Respiratory: Reports: No Symptoms Cardiovascular: Reports: No Symptoms Endocrine: Reports: No Symptoms GI/Abdominal: Reports: No Symptoms : Reports: No Symptoms Musculoskeletal: Reports: Other (Curved skin tear to left hand) ED EXAM, SKIN/RASH Exam: See Below Exam Limited By: No Limitations General Appearance: Alert, No Apparent Distress Ears: Normal External Exam Nose: Normal Inspection Head: Atraumatic, Normocephalic Neck: Normal Inspection Respiratory/Chest: No Respiratory Distress Extremities: Other (Curved skin tear to the dorsum of the left hand without pain or edema.) ED SKIN PROCEDURES - Laceration/Wound Repair Left Hand Lac/Wound length In cm: 1.3 Appearance: Irregular Distal NVT: Neuro & Vascular Intact, No Tendon Injury Skin Prep: Saline Closed with: Dermabond Course - Vital Signs Last Recorded V/S: Last Vital Signs Temp 98.0 F 09/03/18 09:07 Pulse 97 09/03/18 09:07 Resp 18 09/03/18 09:07 BP 158/78 H 09/03/18 09:07 Pulse Ox 96 09/03/18 09:07 - Re-Assessments/Exams Free Text/Narrative Re-Assessment/Exam: 09/03/18 09:34 The patient will check on her tetanus status. We used adhesive to close the wound. Departure - Departure Time of Disposition: 09:35 Disposition: Home, Self-Care 01 Condition: Good Clinical Impression: Skin tear of left hand without complication Qualifiers: Encounter type: initial encounter Qualified Code(s): S61.412A - Laceration without foreign body of left hand, initial encounter - Discharge Information *PRESCRIPTION DRUG MONITORING PROGRAM REVIEWED*: Not Applicable *COPY OF PRESCRIPTION DRUG MONITORING REPORT IN PATIENT PETER: Not Applicable Referrals: Alix Bowden, TECHNICAL MARKETING ENGINEER [Primary Care Provider] - Additional Instructions: The adhesive will wear off over the next week to 10 days. Let it set up for the next 2 hours and then after that, you can wash your hands like normal. Please return if you notice redness, swelling, pain or drainage. These are signs of infection and you may need oral antibiotics.
== END 2018-09-03 09:49 | disposition home or self-care (01) ==
LOC: JD.ED 09:00
DX: S61.412A Laceration without foreign body of left hand, initial encounter (principal); E78.00 Pure hypercholesterolemia, unspecified; I48.91 Unspecified atrial fibrillation; I10 Essential (primary) hypertension; Z95.0 Presence of cardiac pacemaker; G47.30 Sleep apnea, unspecified; Z99.89 Dependence on other enabling machines and devices; E11.9 Type 2 diabetes mellitus without complications; E03.9 Hypothyroidism, unspecified; E66.9 Obesity, unspecified; Z68.30 Body mass index [BMI] 30.0-30.9, adult; Z88.0 Allergy status to penicillin; Z88.8 Allergy status to other drugs, medicaments and biological substances; Z79.899 Other long term (current) drug therapy; Z79.84 Long term (current) use of oral hypoglycemic drugs; Z79.01 Long term (current) use of anticoagulants; W22.8XXA Striking against or struck by other objects, initial encounter
CPT/HCPCS: 12001; 99282

== ENCOUNTER 2018-09-10 10:26 | Emergency (ER) | payer MEDICARE, BC ==
[2018-09-10 10:45] VITALS: BP 169/80
--- NOTE | 2018-09-10 11:15 | EDM.PDOC ---
ED HPI GENERAL MEDICAL PROBLEM - General Chief Complaint: Laceration Stated Complaint: LEFT HAND LACERATION Time Seen by Provider: 09/10/18 11:03 Source of Information: Reports: Patient, Old Records History Limitations: Reports: No Limitations - History of Present Illness INITIAL COMMENTS - FREE TEXT/NARRATIVE: 78-year-old female presents for treatment of a skin tear to the left dorsal hand. Patient was seen 1 week ago in the ER by after she hit her hand on the nightstand and had a skin tear which continue to bleed. She is on Coumadin. This was repaired with Dermabond. This has been healing well. Reports last night she attempted to remove the bandage and developed another skin tear to the hand. She has been applying pressure but it continues to bleed. Tetanus is reportedly up-to-date. Location: Reports: Upper Extremity, Left - Related Data Allergies Allergy/AdvReac Type Severity Reaction Status Date / Time Penicillins Allergy Severe Anaphylactic Verified 09/03/18 09:06 Shock estrogens, conjugated Allergy hives/rash Verified 09/03/18 09:06 [From Premarin] Home Meds: Home Meds Acetaminophen [Tylenol Arthritis Pain] 650 mg PO DAILY PRN 04/13/15 [History] Allopurinol [Zyloprim] 200 mg PO DAILY 04/13/15 [History] Diltiazem HCl [Cardizem Cd] 300 mg PO DAILY 04/13/15 [History] Lisinopril 40 mg PO DAILY 04/13/15 [History] Metoprolol Succinate [Toprol XL] 200 mg PO DAILY 04/13/15 [History] Simvastatin [Zocor] 10 mg PO BEDTIME 04/13/15 [History] Aspirin [Low Dose Aspirin EC] 81 mg PO QPM 04/16/15 [History] Warfarin [Coumadin] 5 mg PO DAILY 04/16/15 [History] Calcium Carbonate [Tums] 500 mg PO DAILY PRN 10/10/16 [History] Folic Acid 400 mcg PO DAILY 10/10/16 [History] Furosemide 40 mg PO DAILY 10/10/16 [History] Levothyroxine Sodium 88 mg PO DAILY 10/10/16 [History] Linagliptin [Tradjenta] 5 mg PO BEDTIME 10/10/16 [History] Pramipexole Di-HCl [Mirapex] 0.25 mg PO BEDTIME 10/10/16 [History] glipiZIDE [Glipizide] 5 mg PO BID 10/10/16 [History] Cholecalciferol (Vitamin D3) [Vitamin D3] 5,000 unit PO DAILY 11/14/16 [History] Furosemide 20 mg PO WITHLUNCH 11/17/16 [History] Docusate Sodium [Colace] 100 mg PO BID PRN 05/16/17 [History] Doxycycline [Vibramycin] 100 mg PO BID #14 cap 07/20/17 [Rx] Past Medical History HEENT History: Reports: Impaired Vision Other HEENT History: has dentures and glasses Cardiovascular History: Reports: Afib, High Cholesterol, Hypertension, Pacemaker Other Cardiovascular History: new pacemaker battery May 2015 Respiratory History: Reports: Sleep Apnea Other Respiratory History: uses cpap at hs Gastrointestinal History: Reports: GERD Genitourinary History: Reports: Other (See Below) Other Genitourinary History: CKD 3 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 (See Below) Other 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 TEACHER History: removal of ovarian cyst Musculoskeletal History: Reports: Gout, Osteoarthritis Other Musculoskeletal History: restless elg syndrome, muscle weakness, uses cane for ambulation Neurological History: Reports: None Psychiatric History: Reports: None Endocrine/Metabolic History: Reports: Diabetes, Type II, Hypothyroidism, Obesity /BMI 30+ Hematologic History: Reports: Anemia, Anticoagulation Therapy Immunologic History: Reports: None Oncologic (Cancer) History: Reports: None Dermatologic History: Reports: None - Infectious Disease History Infectious Disease History: Reports: None - Past Surgical History Head Surgeries/Procedures: Reports: None HEENT Surgical History: Reports: Cataract Surgery Cardiovascular Surgical History: Reports: Pacer Respiratory Surgical History: Reports: None GI Surgical History: Reports: Other (See Below) Other GI Surgeries/Procedures: exploratory laparotomy Female Surgical History: Reports: D&C, Hysterectomy Endocrine Surgical History: Reports: None Neurological Surgical History: Reports: Lumbar Spine Other Neurological Surgeries/Procedures: lumbar disc displacement Musculoskeletal Surgical History: Reports: Hip Replacement Other Musculoskeletal Surgeries/Procedures:: arthrocentesis right knee and left knee, rotator cuff repair of shoulder Oncologic Surgical History: Reports: None Dermatological Surgical History: Reports: None Social & Family History - Tobacco Use Smoking Status *Q: Never Smoker - Caffeine Use Caffeine Use: Reports: None Other Caffeine Use: decaff ED ROS GENERAL - Review of Systems Review Of Systems: ROS reveals no pertinent complaints other than HPI. ED EXAM, SKIN/RASH Exam: See Below Exam Limited By: No Limitations General Appearance: Alert, WD/WN, No Apparent Distress Respiratory/Chest: No Respiratory Distress Cardiovascular: Normal Peripheral Pulses Peripheral Pulses: 2+: Radial (L) Extremities: Normal Inspection (no obvious deformities to the left hand) Neurological: Alert, Oriented, Normal Cognition Psychiatric: Normal Affect, Normal Mood Skin: Warm, Dry, Normal Color, Wound/Incision (approximately 2cm skin tear to the left dorsal hand, avulsion of the skin) Location, Skin: Upper Extremity, Left Course - Vital Signs Last Recorded V/S: Last Vital Signs Temp 97.8 F 09/10/18 10:40 Pulse 82 09/10/18 10:40 Resp 16 09/10/18 10:40 BP 169/80 H 09/10/18 10:40 Pulse Ox 98 09/10/18 10:40 - Re-Assessments/Exams Free Text/Narrative Re-Assessment/Exam: 09/10/18 11:10 Unfortunately, as the skin was avulsed from this wound unable to repair. Should heal fine on its own. I did cauterize 2 small areas that were oozing with silver nitrate. She tolerated this well. Nursing staff applied a pressure dressing and we will discharge home at this time. Discharge instructions as documented. Departure - Departure Time of Disposition: 11:13 Disposition: Home, Self-Care 01 Condition: Fair Clinical Impression: Skin tear of left hand without complication Qualifiers: Encounter type: initial encounter Qualified Code(s): S61.412A - Laceration without foreign body of left hand, initial encounter - Discharge Information *PRESCRIPTION DRUG MONITORING PROGRAM REVIEWED*: No *COPY OF PRESCRIPTION DRUG MONITORING REPORT IN PATIENT PETER: No Referrals: Alix Bowden NP [Primary Care Provider] - Forms: ED Department Discharge Additional Instructions: May wash the hand with gentle soap and water. You may apply bacitracin to this new wound. If it rebleeds recommend applying a pressure dressing. Monitor the wound for signs of infection such as increased swelling, pus or redness. Presents to clinic or the ER should these develop. Given the avulsion injury to this hand this may take 1-2 weeks to heal. Recommend avoiding bandages in the future. Recommend raping your hand with gauze and [place] and for pressure. Please return to the ER if your symptoms change or worsen.
== END 2018-09-10 11:22 | disposition home or self-care (01) ==
LOC: JD.ED 10:26
DX: S61.412A Laceration without foreign body of left hand, initial encounter (principal); I12.9 Hypertensive chronic kidney disease with stage 1 through stage 4 chronic kidney disease, or unspecified chronic kidney disease; E11.22 Type 2 diabetes mellitus with diabetic chronic kidney disease; N18.3 Chronic kidney disease, stage 3 (moderate); E78.00 Pure hypercholesterolemia, unspecified; I48.91 Unspecified atrial fibrillation; K21.9 Gastro-esophageal reflux disease without esophagitis; E03.9 Hypothyroidism, unspecified; Z79.01 Long term (current) use of anticoagulants; Z79.82 Long term (current) use of aspirin; Z79.84 Long term (current) use of oral hypoglycemic drugs; Z79.899 Other long term (current) drug therapy; Z88.0 Allergy status to penicillin; Z88.8 Allergy status to other drugs, medicaments and biological substances; X58.XXXA Exposure to other specified factors, initial encounter
CPT/HCPCS: 99282

== ENCOUNTER 2021-12-22 18:54 | Emergency (ER) | payer MEDICARE, OTHER ==
[2021-12-22 19:16] VITALS: BP 170/75; PULSE 75
[2021-12-22 20:01] LABS: ESTIMATED GFR 27 mL/min (>60)
[2021-12-22 21:49] LABS: CORONAVIRUS COVID-19 NAA NEGATIVE (NEGATIVE)
== END 2021-12-22 22:18 | disposition home or self-care (01) ==
LOC: JD.ED 18:54
DX: J06.9 Acute upper respiratory infection, unspecified (principal); E78.00 Pure hypercholesterolemia, unspecified; I10 Essential (primary) hypertension; E11.9 Type 2 diabetes mellitus without complications; E66.9 Obesity, unspecified; Z68.41 Body mass index [BMI] 40.0-44.9, adult; Z88.0 Allergy status to penicillin; Z88.2 Allergy status to sulfonamides; Z79.899 Other long term (current) drug therapy; Z79.82 Long term (current) use of aspirin; Z79.01 Long term (current) use of anticoagulants; Z90.710 Acquired absence of both cervix and uterus; Z87.891 Personal history of nicotine dependence; Z20.822 Contact with and (suspected) exposure to COVID-19
CPT/HCPCS: 0241U; 36415; 71045; 80053; 84484; 85025; 85379; 86140; 93005; 99285

== ENCOUNTER 2022-07-19 09:43 | Emergency (ER) | payer MEDICARE, OTHER ==
[2022-07-19 10:27] VITALS: BP 149/73; PULSE 88
== END 2022-07-19 12:45 | disposition home or self-care (01) ==
LOC: JD.ED 09:43
DX: S63.501A Unspecified sprain of right wrist, initial encounter (principal); I48.91 Unspecified atrial fibrillation; E78.00 Pure hypercholesterolemia, unspecified; I12.9 Hypertensive chronic kidney disease with stage 1 through stage 4 chronic kidney disease, or unspecified chronic kidney disease; E11.22 Type 2 diabetes mellitus with diabetic chronic kidney disease; N18.30 Chronic kidney disease, stage 3 unspecified; M10.9 Gout, unspecified; E03.9 Hypothyroidism, unspecified; E66.9 Obesity, unspecified; Z68.41 Body mass index [BMI] 40.0-44.9, adult; Z87.891 Personal history of nicotine dependence; Z88.0 Allergy status to penicillin; Z88.8 Allergy status to other drugs, medicaments and biological substances; Z79.82 Long term (current) use of aspirin; Z79.01 Long term (current) use of anticoagulants; Z79.84 Long term (current) use of oral hypoglycemic drugs; Z79.899 Other long term (current) drug therapy; W18.30XA Fall on same level, unspecified, initial encounter; Y93.01 Activity, walking, marching and hiking
CPT/HCPCS: 73110-26-RT; 73110-RT; 99283

== ENCOUNTER 2023-08-08 19:50 | Observation (INO) | payer MEDICARE, OTHER ==
[2023-08-08 21:26] LABS: BASOPHILS PERCENT AUTO 0.4 % (0.0-1.0); EOSINOPHILS ABSOLUTE AUTO 0.1 K/mm3 (0.0-0.4); EOSINOPHILS PERCENT AUTO 2.8 % (0.0-6.0); HEMOGLOBIN 10.4 gm/dl (12.0-16.0); IMMATURE GRAN ABSOLUTE AUTO 0.02 K/mm3 (0.00-0.05); IMMATURE GRAN PERCENT AUTO 0.4 % (0.0-0.4); LYMPHOCYTES PERCENT AUTO 18.7 % (24.0-44.0); MEAN CORPUSCULAR HEMOGLOBIN 31.1 pg (28.0-32.0); MEAN CORPUSCULAR HGB CONC 32.5 g/dl (32.0-36.0); MEAN CORPUSCULAR VOLUME 95.8 fl (83.0-99.0); MEAN PLATELET VOLUME 11.1 fl (9.4-12.3); MONOCYTES ABSOLUTE AUTO 0.4 K/mm3 (0.0-0.8); MONOCYTES PERCENT AUTO 8.7 % (0.0-8.0); NEUTROPHILS ABSOLUTE AUTO 3.5 K/mm3 (1.8-7.7); PLATELET COUNT,PLT 149 K/mm3 (150-400); RED BLOOD CELL COUNT 3.34 M/mm3 (4.10-5.30); WHITE BLOOD CELL COUNT,WBC 5.07 K/mm3 (3.9-11.3)
[2023-08-08 21:35] LABS: INR 1.63; PROTHROMBIN TIME 16.8 SECONDS (9.7-12.0)
[2023-08-08 21:46] LABS: ALBUMIN 3.5 g/dl (3.4-5.0); BILIRUBIN TOTAL 0.5 mg/dL (0.2-1.0); BUN/CREATININE RATIO 19.2 (14-18); CALCIUM 9.4 mg/dL (8.5-10.1); CREATININE 3.7 mg/dL (0.55-1.02); PROTEIN TOTAL,TP 7.1 g/dl (6.4-8.2); TSH 0.911 uIU/mL (0.358-3.74)
[2023-08-08] MEDS ORDERED: Sodium Chloride 0.9% 10 ML Syringe FLUSH PRN (22:10)
[2023-08-08 22:30] LABS: LACTIC ACID 1.5 mmol/L (0.4-2.0)
[2023-08-08] MEDS: Sodium Chloride 0.9% 1,000 ML IV SCH (22:40)
[2023-08-08 22:41] LABS: APPEARANCE,URINE SLT CLOUDY (Clear); BILIRUBIN,URINE NEGATIVE (Negative); COLOR,URINE YELLOW (Yellow); GLUCOSE,URINE NEGATIVE (Negative); KETONES,URINE NEGATIVE (Negative); LEUKOCYTE ESTERASE,URINE 2+ (Negative); NITRITE,URINE NEGATIVE (Negative); OCCULT BLOOD,URINE TRACE-LYSED (Negative); PROTEIN,URINE NEGATIVE (Negative); UROBILINOGEN,URINE 0.2 (0.2-1.0)
[2023-08-08 23:01] LABS: RBC,URINE 0-5 /hpf (0-5)
[2023-08-08 23:02] LABS: BACTERIA,URINE MANY /hpf (FEW); MUCUS,URINE NOT SEEN /hpf (FEW)
[2023-08-09] MEDS: Acetaminophen 325 MG Tab PO ONE (01:22)
[2023-08-09] MEDS: Pramipexole 0.25 MG Tab PO ONE (01:23)
[2023-08-09 06:43] LABS: BASOPHILS PERCENT AUTO 0.2 % (0.0-1.0); EOSINOPHILS ABSOLUTE AUTO 0.1 K/mm3 (0.0-0.4); EOSINOPHILS PERCENT AUTO 2.9 % (0.0-6.0); HEMATOCRIT 30.8 % (37.0-47.0); HEMOGLOBIN 9.9 gm/dl (12.0-16.0); IMMATURE GRAN ABSOLUTE AUTO 0.01 K/mm3 (0.00-0.05); IMMATURE GRAN PERCENT AUTO 0.2 % (0.0-0.4); LYMPHOCYTES ABSOLUTE AUTO 1.1 K/mm3 (1.0-4.8); LYMPHOCYTES PERCENT AUTO 22.7 % (24.0-44.0); MEAN CORPUSCULAR HEMOGLOBIN 30.6 pg (28.0-32.0); MEAN CORPUSCULAR HGB CONC 32.1 g/dl (32.0-36.0); MEAN CORPUSCULAR VOLUME 95.1 fl (83.0-99.0); MEAN PLATELET VOLUME 11.1 fl (9.4-12.3); MONOCYTES ABSOLUTE AUTO 0.5 K/mm3 (0.0-0.8); MONOCYTES PERCENT AUTO 9.6 % (0.0-8.0); NEUTROPHILS ABSOLUTE AUTO 3.2 K/mm3 (1.8-7.7); NEUTROPHILS PERCENT AUTO 64.4 % (41.0-71.0); PLATELET COUNT,PLT 144 K/mm3 (150-400); RED BLOOD CELL COUNT 3.24 M/mm3 (4.10-5.30); WHITE BLOOD CELL COUNT,WBC 4.89 K/mm3 (3.9-11.3)
[2023-08-09 07:08] LABS: ALBUMIN 3.1 g/dl (3.4-5.0); ANION GAP 10.9 (5-15); BILIRUBIN TOTAL 0.5 mg/dL (0.2-1.0); BUN/CREATININE RATIO 23.8 (14-18); CALCIUM 9.2 mg/dL (8.5-10.1); CREATININE 2.9 mg/dL (0.55-1.02); EST CRCL DRUG DOSING (CG) 11.48 mL/min; MAGNESIUM 2.5 mg/dL (1.8-2.4); POTASSIUM,K 3.9 mEq/L (3.5-5.1); PROTEIN TOTAL,TP 6.2 g/dl (6.4-8.2)
[2023-08-09] MEDS: cefTRIAXone 1 GM in Sodium Chloride 0.9% 100 ML IV ONE (08:43)
[2023-08-09 12:11] VITALS: BP 140/54; PULSE 85
[2023-08-09] MEDS ORDERED: Pramipexole 0.25 MG Tab PO SCH (21:00)
== END 2023-08-09 12:52 | disposition home or self-care (01) ==
LOC: JD.ED 19:50 → JD.MS 22:35
PROVIDERS: ADMIT Internal Medicine; ATTEND Internal Medicine
DX: N17.9 Acute kidney failure, unspecified (principal); N18.4 Chronic kidney disease, stage 4 (severe); E11.22 Type 2 diabetes mellitus with diabetic chronic kidney disease; I48.11 Longstanding persistent atrial fibrillation; I12.9 Hypertensive chronic kidney disease with stage 1 through stage 4 chronic kidney disease, or unspecified chronic kidney disease; D63.1 Anemia in chronic kidney disease; E03.9 Hypothyroidism, unspecified; E66.9 Obesity, unspecified; K21.9 Gastro-esophageal reflux disease without esophagitis; G47.30 Sleep apnea, unspecified; E78.00 Pure hypercholesterolemia, unspecified; Z68.30 Body mass index [BMI] 30.0-30.9, adult; Z79.890 Hormone replacement therapy; Z79.01 Long term (current) use of anticoagulants; Z79.899 Other long term (current) drug therapy; Z95.0 Presence of cardiac pacemaker; Z87.891 Personal history of nicotine dependence; Z88.0 Allergy status to penicillin; Z88.8 Allergy status to other drugs, medicaments and biological substances
CPT/HCPCS: 36415; 71045; 80053; 81001; 81003; 82947; 83605; 83735; 83880; 84443; 84484; 85025; 85610; 87086; 93005; 96360; 99285; A9270; J0696; J3490; J7030; 96361; 96365; G0378